=== PATIENT | male | born 1935 | race Caucasian/White ===

== ENCOUNTER 2020-04-05 08:25 | Inpatient (IN) | payer MEDICARE, BC ==
--- NOTE | 2020-04-05 09:33 | EDM.PDOC ---
ED HPI GENERAL MEDICAL PROBLEM - General Chief Complaint: General Stated Complaint: WEAKNESS Time Seen by Provider: 04/05/20 09:29 Source of Information: Reports: Patient History Limitations: Reports: No Limitations - History of Present Illness INITIAL COMMENTS - FREE TEXT/NARRATIVE: pt has marked weakness and was in the bathroom last nite and went to the floor not hurting himself. He had alot of difficulty geting up. 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 a Onset: Gradual Duration: Hour(s): Location: Reports: Generalized Associated Symptoms: Reports: No Other Symptoms, Weakness - Related Data Allergies Allergy/AdvReac Type Severity Reaction Status Date / Time No Known Allergies Allergy Verified 04/05/20 08:48 Home Meds: Home Meds Folic Acid 1 mg PO DAILY 04/05/20 [History] Insulin Glarg,Human.Rec.Analog [Lantus Solostar] 10 unit SQ BEDTIME 04/05/20 [History] Omeprazole Magnesium [Prilosec] 20 mg PO DAILY 04/05/20 [History] Pravastatin [Pravachol] 40 mg PO DAILY 04/05/20 [History] glipiZIDE [Glucotrol XL] 10 mg PO BID 04/05/20 [History] metFORMIN [Glucophage XR] 1,000 mg PO BIDMEALS 04/05/20 [History] Past Medical History HEENT History: Reports: Impaired Vision Cardiovascular History: Reports: High Cholesterol Gastrointestinal History: Reports: GERD Endocrine/Metabolic History: Reports: Diabetes, Type II Hematologic History: Reports: Anemia, B12 Deficiency Oncologic (Cancer) History: Reports: Leukemia Social & Family History - Tobacco Use Smoking Status *Q: Never Smoker - Caffeine Use Caffeine Use: Reports: Coffee - Recreational Drug Use Recreational Drug Use: No ED ROS GENERAL - Review of Systems Review Of Systems: See Below Constitutional: Reports: Weakness, Fatigue HEENT: Reports: No Symptoms Respiratory: Reports: No Symptoms Cardiovascular: Reports: No Symptoms Endocrine: Reports: No Symptoms GI/Abdominal: Reports: Decreased Appetite, Other (pt is not eating and drinking well) : Reports: No Symptoms Musculoskeletal: Reports: No Symptoms Skin: Reports: No Symptoms ED EXAM, GENERAL - Physical Exam Exam: See Below Free Text/Narrative:: pt is having alot weakness. He has a history of chronic lynphcytic leukemia. Exam Limited By: No Limitations General Appearance: Alert, Anxious Ears: Normal TMs Nose: Normal Inspection Throat/Mouth: Normal Inspection Head: Atraumatic Neck: Normal Inspection Respiratory/Chest: No Respiratory Distress Cardiovascular: Regular Rate, Rhythm GI/Abdominal: Soft, Non-Tender (Male) Exam: Deferred Rectal (Males) Exam: Deferred, Other ( stool has been normal colored. ) Back Exam: Normal Inspection Extremities: No Pedal Edema Neurological: Alert, Oriented, Normal Cognition Psychiatric: Anxious Skin Exam: Other (pt is very pale in appearance. ) Course - Vital Signs Last Recorded V/S: Last Vital Signs Temp 36.4 C 04/05/20 08:51 Pulse 92 04/05/20 08:51 Resp 14 04/05/20 08:51 BP 115/31 L 04/05/20 08:51 Pulse Ox 100 04/05/20 08:51 - Orders/Labs/Meds Orders: Active Orders 24 hr Category Date Time Status FOLIC ACID [CHEM] Routine Lab 04/05/20 10:07 Received RED BLOOD CELLS LP [BBK] Stat Lab 04/05/20 09:25 Received TYPE AND SCREEN [BBK] Stat Lab 04/05/20 09:25 Received UA W/MICROSCOPIC [URIN] Urgent Lab 04/05/20 09:06 Ordered VITAMIN B12 [CHEM] Stat Lab 04/05/20 09:58 Ordered Sodium Chloride 0.9% [Normal Saline] 1,000 ml Med 04/05/20 10:00 Active IV ASDIRECTED Medication Orders Sodium Chloride (Normal Saline) 1,000 mls @ 250 mls/hr IV ASDIRECTED ADRSHAN Labs: Laboratory Tests 04/05/20 04/05/20 Range/Units 09:22 09:22 WBC 17.1 H (4.5-11.0) K/uL RBC 1.71 L (4.30-5.90) M/uL Hgb 5.6 L* (12.0-15.0) g/dL Hct 18.6 L (40.0-54.0) % MCV 109 H (80-98) fL MCH 33 H (27-31) pg MCHC 30 L (32-36) % Plt Count 153 (150-400) K/uL Add Manual Diff Yes Neutrophils % (Manual) 5 L (36-66) % Lymphocytes % (Manual) 94 H (24-44) % Monocytes % (Manual) 1 L (2-6) % Sodium 135 L (140-148) mmol/L Potassium 4.3 (3.6-5.2) mmol/L Chloride 103 (100-108) mmol/L Carbon Dioxide 22 (21-32) mmol/L Anion Gap 14.3 H (5.0-14.0) mmol/L BUN 24 H (7-18) mg/dL Creatinine 1.4 H (0.8-1.3) mg/dL Est Cr Clr Drug Dosing 35.28 mL/min Estimated GFR (MDRD) 48 L (>60) Glucose 241 H (74-106) mg/dL Calcium 8.2 L (8.5-10.1) mg/dL Total Bilirubin 0.6 (0.2-1.0) mg/dL AST 13 L (15-37) U/L ALT 22 (12-78) U/L Alkaline Phosphatase 51 (46-116) U/L Total Protein 6.1 L (6.4-8.2) g/dL Albumin 3.4 (3.4-5.0) g/dL Globulin 2.7 (2.3-3.5) g/dL Albumin/Globulin Ratio 1.3 (1.2-2.2) Meds: Medications Generic Name Dose Route Start Last Admin Trade Name Freq PRN Reason Stop Dose Admin Sodium Chloride 1,000 mls @ 250 mls/hr 04/05/20 10:00 Normal Saline IV ASDIRECTED DARSHAN - Re-Assessments/Exams Free Text/Narrative Re-Assessment/Exam: 04/05/20 10:03 pt has a hg of 5.6. He has received blood once in the past and he did feel alot better after the transfusion/ Departure - Departure Time of Disposition: 10:14 Disposition: Admitted As Inpatient 66 Condition: Fair Clinical Impression: Anemia, Chronic lymphocytic leukemia - Discharge Information Referrals: PCP,None [Primary Care Provider] - Forms: ED Department Discharge Care Plan Goals: pt will be transfused. Sepsis Event Note (ED) - Evaluation Sepsis Screening Result: No Definite Risk - Focused Exam Vital Signs: Vital Signs Temp Pulse Resp BP Pulse Ox 04/05/20 08:51 36.4 C 92 14 115/31 L 100 04/05/20 08:45 36.4 C 92 14 115/31 L 100 - My Orders Last 24 Hours: My Active Orders 04/05/20 09:06 UA W/MICROSCOPIC [URIN] Urgent 04/05/20 09:25 RED BLOOD CELLS LP [BBK] Stat TYPE AND SCREEN [BBK] Stat 04/05/20 09:58 VITAMIN B12 [CHEM] Stat 04/05/20 10:00 Sodium Chloride 0.9% [Normal Saline] 1,000 ml IV ASDIRECTED 04/05/20 10:07 FOLIC ACID [CHEM] Routine - Assessment/Plan Last 24 Hours: My Active Orders 04/05/20 09:06 UA W/MICROSCOPIC [URIN] Urgent 04/05/20 09:25 RED BLOOD CELLS LP [BBK] Stat TYPE AND SCREEN [BBK] Stat 04/05/20 09:58 VITAMIN B12 [CHEM] Stat 04/05/20 10:00 Sodium Chloride 0.9% [Normal Saline] 1,000 ml IV ASDIRECTED 04/05/20 10:07 FOLIC ACID [CHEM] Routine
[2020-04-05] MEDS ORDERED: Sodium Chloride 0.9% 1,000 ML IV SCH (10:00)
--- NOTE | 2020-04-05 10:51 | PCM.HP.2 ---
H&P History of Present Illness - General Date of Service: 04/05/20 Admit Problem/Dx: Admission Diagnosis/Problem Admission Diagnosis/Problem Anemia Source of Information: Patient, Family, Old Records, Provider, RN Notes Reviewed History Limitations: Reports: No Limitations - History of Present Illness Initial Comments - Free Text/Narative: Mr. Morin is an 84-year-old gentleman who was admitted through the emergency department to observation status for management of severe anemia and weakness. He has a known diagnosis of chronic lymphocytic leukemia with chronic anemia. On recent clinic follow-up was found to have a hemoglobin of 6.5 but was also found to be B12 deficient. He has received a B12 injection but unfortunately has become progressively more weak and lightheaded. He fell last night and was unable to get up without significant assistance. On evaluation in the emergency department today his hemoglobin is noted to be 5.6 white blood cell count is 17,000 with a predominance of lymphocytes and his platelet count is within normal range. - Related Data Allergies/Adverse Reactions: Allergies Allergy/AdvReac Type Severity Reaction Status Date / Time No Known Allergies Allergy Verified 04/05/20 08:48 Home Medications: Home Meds Folic Acid 1 mg PO DAILY 04/05/20 [History] Insulin Glarg,Human.Rec.Analog [Lantus Solostar] 10 unit SQ BEDTIME 04/05/20 [History] Omeprazole Magnesium [Prilosec] 20 mg PO DAILY 04/05/20 [History] Pravastatin [Pravachol] 40 mg PO DAILY 04/05/20 [History] glipiZIDE [Glucotrol XL] 10 mg PO BID 04/05/20 [History] metFORMIN [Glucophage XR] 1,000 mg PO BIDMEALS 04/05/20 [History] Past Medical History HEENT History: Reports: Impaired Vision Cardiovascular History: Reports: High Cholesterol Gastrointestinal History: Reports: GERD Endocrine/Metabolic History: Reports: Diabetes, Type II Hematologic History: Reports: Anemia, B12 Deficiency Oncologic (Cancer) History: Reports: Leukemia Social & Family History - Tobacco Use Smoking Status *Q: Never Smoker - Caffeine Use Caffeine Use: Reports: Coffee - Recreational Drug Use Recreational Drug Use: No H&P Review of Systems - Review of Systems: Review Of Systems: See Below General: Reports: Weakness, Fatigue. Denies: Fever, Chills HEENT: Reports: No Symptoms Pulmonary: Reports: Shortness of Breath. Denies: Wheezing, Pleuritic Chest Pain, Cough, Sputum, Hemoptysis Cardiovascular: Reports: Dyspnea on Exertion, Lightheadedness. Denies: Chest Pain, Palpitations, Orthopnea, PND, Edema, Syncope Gastrointestinal: Reports: No Symptoms Genitourinary: Reports: No Symptoms Musculoskeletal: Reports: No Symptoms Skin: Reports: No Symptoms Psychiatric: Reports: No Symptoms Neurological: Reports: No Symptoms Hematologic/Lymphatic: Reports: No Symptoms Immunologic: Reports: No Symptoms Exam - Exam Exam: See Below - Vital Signs Vital Signs: Last Vital Signs Temp 97.6 F 04/05/20 08:51 Pulse 92 04/05/20 08:51 Resp 14 04/05/20 08:51 BP 115/31 L 04/05/20 08:51 Pulse Ox 100 04/05/20 08:51 Weight: 140 lb - Exam Quality Assessment: DVT Prophylaxis General: Alert, Oriented, Cooperative, Moderate Distress HEENT: Conjunctiva Clear, Hearing Intact, Mucosa Moist & [place], Normal Nasal Septum, Posterior Pharynx Clear, Pupils Equal Neck: Supple, Trachea Midline, +2 Carotid Pulse wo Bruit Lungs: Clear to Auscultation, Normal Respiratory Effort Cardiovascular: Regular Rate, Regular Rhythm, Normal S1, Normal S2. No: Systolic Murmur, Diastolic Murmur GI/Abdominal Exam: Soft, Non-Tender, No Organomegaly, No Distention Back Exam: Normal Inspection, Full Range of Motion Extremities: Non-Tender, No Pedal Edema Skin: Warm, Dry, Intact Neurological: Cranial Nerves Intact, Strength Equal Bilateral, Normal Speech, Normal Tone, Sensation Intact. No: Focal Deficit Neuro Extensive - Mental Status: Alert, Oriented x3, Normal Mood/Affect, Normal Cognition, Memory Intact - Patient Data Lab Results Last 24 hrs: Laboratory Results - last 24 hr 04/05/20 04/05/20 04/05/20 Range/Units 09:22 09:22 09:25 WBC 17.1 H (4.5-11.0) K/uL RBC 1.71 L (4.30-5.90) M/uL Hgb 5.6 L* (12.0-15.0) g/dL Hct 18.6 L (40.0-54.0) % MCV 109 H (80-98) fL MCH 33 H (27-31) pg MCHC 30 L (32-36) % Plt Count 153 (150-400) K/uL Add Manual Diff Yes Neutrophils % (Manual) 5 L (36-66) % Lymphocytes % (Manual) 94 H (24-44) % Monocytes % (Manual) 1 L (2-6) % Sodium 135 L (140-148) mmol/L Potassium 4.3 (3.6-5.2) mmol/L Chloride 103 (100-108) mmol/L Carbon Dioxide 22 (21-32) mmol/L Anion Gap 14.3 H (5.0-14.0) mmol/L BUN 24 H (7-18) mg/dL Creatinine 1.4 H (0.8-1.3) mg/dL Est Cr Clr Drug Dosing 35.28 mL/min Estimated GFR (MDRD) 48 L (>60) Glucose 241 H (74-106) mg/dL Calcium 8.2 L (8.5-10.1) mg/dL Total Bilirubin 0.6 (0.2-1.0) mg/dL AST 13 L (15-37) U/L ALT 22 (12-78) U/L Alkaline Phosphatase 51 (46-116) U/L Total Protein 6.1 L (6.4-8.2) g/dL Albumin 3.4 (3.4-5.0) g/dL Globulin 2.7 (2.3-3.5) g/dL Albumin/Globulin Ratio 1.3 (1.2-2.2) Blood Type A POSITIVE Gel Antibody Screen Negative Crossmatch See Detail Result Diagrams: 04/05/20 09:22 04/05/20 09:22 Sepsis Event Note - Evaluation Sepsis Screening Result: No Definite Risk - Focused Exam Vital Signs: Vital Signs Temp Pulse Resp BP Pulse Ox 04/05/20 08:51 97.6 F 92 14 115/31 L 100 04/05/20 08:45 97.6 F 92 14 115/31 L 100 Date Exam was Performed: 04/05/20 Time Exam was Performed: 10:44 *Q Meaningful Use (ADM) - VTE *Q VTE Pharmacological Contraindications *Q: Patient has Severe Anemia - VTE Risk Assess *Q Each Risk Factor Represents 1 Point: None Total Score 1 Point Risk Factors: 0 Each Risk Factor Represents 2 Points: Malignancy (present or previous) Total Score 2 Point Risk Factors: 2 Each Risk Factor Represents 3 Points: Age 75 Years or Greater Total Score 3 Point Risk Factors: 3 Each Risk Factor Represents 5 Points: None Total Score 5 Point Risk Factors: 0 Venous Thromboembolism Risk Factor Score *Q: 5 Problem List Initiated/Reviewed/Updated: Yes Orders Last 24hrs: Active Orders 24 hr Category Date Time Status Patient Status Manage Transfer [TRANSFER] Routine ADT 04/05/20 10:38 Active FOLIC ACID [CHEM] Routine Lab 04/05/20 10:07 Received PATIENT RETYPE [BBK] Stat Lab 04/05/20 09:25 Results RED BLOOD CELLS LP [BBK] Stat Lab 04/05/20 09:25 Results TYPE AND SCREEN [BBK] Stat Lab 04/05/20 09:25 Results UA W/MICROSCOPIC [URIN] Urgent Lab 04/05/20 09:06 Ordered VITAMIN B12 [CHEM] Stat Lab 04/05/20 09:58 Ordered Sodium Chloride 0.9% [Normal Saline] 1,000 ml Med 04/05/20 10:00 Active IV ASDIRECTED Resuscitation Status Routine Resus Stat 04/05/20 10:39 Ordered Medication Orders Sodium Chloride (Normal Saline) 1,000 mls @ 250 mls/hr IV ASDIRECTED DARSHAN Last Admin: 04/05/20 10:38 Dose: 250 mls/hr Documented by: SABINO Assessment/Plan Comment:: ASSESSMENT AND PLAN SEVERE ANEMIA-secondary to underlying chronic lymphocytic leukemia as well as B12 deficiency. He has started B12 injections but hemoglobin is dropped since his last outpatient visit, now at 5.6. -Transfused 2 units of red blood cells -Follow-up hemoglobin in a.m. 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 TYPE 2 DIABETES MELLITUS -Continue outpatient long-acting insulin and glipizide -4 times daily glucometers -Low-dose sliding scale Humalog MAINTENANCE ISSUES -DVT prophylaxis; not a candidate for anticoagulation because of severe anemia, SCUDs -GI prophylaxis; continue outpatient PPI therapy -Small catheter; not indicated -Nutrition; consistent carbohydrate diet -Nicotine dependence; not required CODE STATUS-FULL CODE ADMISSION STATUS-this patient will be admitted to observation status, expect no more than a one night hospital stay for evaluation and management of problems as outlined above. DISPOSITION-anticipate discharge to home after the hospital stay. PRIMARY CARE PROVIDER-current primary care provider is at the [facility] in [place]. - Mortality Measure Prognosis:: Good
[2020-04-05] MEDS ORDERED: Ondansetron 4 MG/2 ML SDV IV PRN (12:29)
[2020-04-05] MEDS ORDERED: Polyethylene Glycol 3350 Powder 17 GM Packet PO PRN (12:29)
[2020-04-05] MEDS ORDERED: Glucose Gel 15 GM in 37.5 GM Tube PO PRN (12:29)
[2020-04-05] MEDS ORDERED: 50% Dextrose in Water 50 ML Syringe IV PRN (12:29)
[2020-04-05] MEDS ORDERED: Sodium Chloride 0.9% 10 ML Syringe FLUSH PRN (12:29)
[2020-04-05] MEDS: Insulin Lispro 100 Unit/ML 3 ML KwikPen SUBCUT SCH ×3 (13:39→21:31)
[2020-04-05] MEDS: glipiZIDE 5 MG Tab.ER PO SCH (16:05)
[2020-04-05] MEDS: metFORMIN 500 MG Tab PO SCH (16:05)
[2020-04-05] MEDS: Insulin Glargine,Human Rec. Analog 100 Units/ML 3 ML Pen SUBCUT SCH (21:32)
[2020-04-06] MEDS: Insulin Lispro 100 Unit/ML 3 ML KwikPen SUBCUT SCH ×4 (08:07→21:27)
[2020-04-06] MEDS: FOLIC ACID 1 MG PO SCH (08:08)
[2020-04-06] MEDS: Pantoprazole 40 MG Tab.CR PO SCH (08:08)
[2020-04-06] MEDS: metFORMIN 500 MG Tab PO SCH (08:08)
[2020-04-06] MEDS: glipiZIDE 5 MG Tab.ER PO SCH (08:08)
[2020-04-06] MEDS ORDERED: Pravastatin 20 MG Tab PO SCH (09:00)
--- NOTE | 2020-04-06 12:17 | PCM.DCSUM1 ---
Discharge Summary - Hospital Course Brief History: Mr. Morin is an 84-year-old gentleman who was admitted through the emergency department with severe weakness and recent falls secondary to severe anemia and underlying chronic lymphocytic leukemia. - Discharge Data Discharge Date: 04/06/20 Discharge Disposition: Home, W Home Health Agency 06 Condition: Fair - Referral to Home Health Date of Face to Face Encounter: 04/06/20 Reason for Homebound Status: Weakness, chronic lymphocytic leukemia, anemia Primary Care Physician: PCP None Skilled Need: Severe generalized weakness, restorative physical therapy and Occupational Therapy - Patient Summary/Data Consults: Consultations 04/06/20 07:49 Consult to Physical Therapy [PT Evaluation and Treatment] [CONS] Routine Please Evaluate and Treat. PT Reason for Consult: weakness, falls This query below is only for informational purposes and is not editable. Admission Diagnosis/Problem: Anemia Hospital Course: Mr. Morin is an 84-year-old gentleman who was admitted through the emergency department to observation status for management of severe anemia and weakness. He has a known diagnosis of chronic lymphocytic leukemia with chronic anemia. On recent clinic follow-up was found to have a hemoglobin of 6.5 but was also found to be B12 deficient. He has received a B12 injection but unfortunately has become progressively more weak and lightheaded. He fell last night and was unable to get up without significant assistance. On evaluation in the emergency department today his hemoglobin is noted to be 5.6 white blood cell count is 17,000 with a predominance of lymphocytes and his platelet count is within normal range. He was admitted to observation status and transfused 2 units of red blood cells. By the following morning hemoglobin was 8.9. Despite transfusion he remained very weak. Family did not feel that they would be able to afford fdc placement so he will be discharged home with home physical therapy and Occupational Therapy. Blood glucose levels were monitored throughout hospital stay and remained within desired range for the most part. Follow-up appointment will be scheduled with a primary care provider as well as oncology for ongoing management of his chronic lymphocytic leukemia. Activity will be as tolerated and he will remain on a consistent carb diet. - Patient Instructions Diet: Usual Diet as Tolerated Activity: As Tolerated Other/Special Instructions: Please schedule follow-up appointment with primary care provider within 1 week. CBC should be obtained at the time of follow-up appointment. Please arrange for home care with home physical therapy and Occupational Therapy. - Discharge Plan *PRESCRIPTION DRUG MONITORING PROGRAM REVIEWED*: Not Applicable *COPY OF PRESCRIPTION DRUG MONITORING REPORT IN PATIENT YOLANDA: Not Applicable Home Medications: Home Meds Folic Acid 1 mg PO DAILY 04/05/20 [History] Insulin Glarg,Human.Rec.Analog [Lantus Solostar] 10 unit SQ BEDTIME 04/05/20 [History] Omeprazole Magnesium [Prilosec] 20 mg PO DAILY 04/05/20 [History] Pravastatin [Pravachol] 40 mg PO DAILY 04/05/20 [History] glipiZIDE [Glucotrol XL] 10 mg PO BID 04/05/20 [History] metFORMIN [Glucophage XR] 1,000 mg PO BIDMEALS 04/05/20 [History] - Discharge Summary/Plan Comment DC Time >30 min.: No - Patient Data Vitals - Most Recent: Last Vital Signs Temp 95.7 F L 04/06/20 11:25 Pulse 94 04/06/20 11:25 Resp 16 04/06/20 11:25 BP 130/51 L 04/06/20 11:25 Pulse Ox 98 04/06/20 11:25 Weight - Most Recent: 131 lb I&O - Last 24 hours: Intake & Output 04/05/20 04/06/20 04/06/20 22:59 06:59 14:59 Intake Total 1070 300 500 Balance 1070 300 500 Lab Results - Last 24 hrs: Laboratory Results - last 24 hr 04/05/20 04/05/20 04/05/20 Range/Units 09:25 12:15 16:30 Hgb (12.0-15.0) g/dL POC Glucose 197 H (74-106) MG/DL Urine Color Yellow (YELLOW) Urine Appearance Clear (CLEAR) Urine pH 6.0 (5.0-8.0) Ur Specific [place] 1.025 (1.008-1.030) Urine Protein Negative (NEGATIVE) mg/dL Urine Glucose (UA) 250 H (NEGATIVE) mg/dL Urine Ketones Negative (NEGATIVE) mg/dL Urine Occult Blood Negative (NEGATIVE) Urine Nitrite Negative (NEGATIVE) Urine Bilirubin Negative (NEGATIVE) Urine Urobilinogen 0.2 (0.2-1.0) EU/dL Ur Leukocyte Esterase Negative (NEGATIVE) Urine RBC Not seen (0-5) Urine WBC 0-5 (0-5) Ur Epithelial Cells Not seen Amorphous Sediment Rare Urine Bacteria Not seen Urine Mucus Rare Blood Type A POSITIVE Gel Antibody Screen Negative Crossmatch See Detail 04/05/20 04/06/20 04/06/20 Range/Units 21:00 05:00 05:00 Hgb 8.9 L D (12.0-15.0) g/dL POC Glucose 99 86 (74-106) MG/DL Urine Color (YELLOW) Urine Appearance (CLEAR) Urine pH (5.0-8.0) Ur Specific [place] (1.008-1.030) Urine Protein (NEGATIVE) mg/dL Urine Glucose (UA) (NEGATIVE) mg/dL Urine Ketones (NEGATIVE) mg/dL Urine Occult Blood (NEGATIVE) Urine Nitrite (NEGATIVE) Urine Bilirubin (NEGATIVE) Urine Urobilinogen (0.2-1.0) EU/dL Ur Leukocyte Esterase (NEGATIVE) Urine RBC (0-5) Urine WBC (0-5) Ur Epithelial Cells Amorphous Sediment Urine Bacteria Urine Mucus Blood Type Gel Antibody Screen Crossmatch 04/06/20 04/06/20 Range/Units 07:30 11:30 Hgb (12.0-15.0) g/dL POC Glucose 82 105 (74-106) MG/DL Urine Color (YELLOW) Urine Appearance (CLEAR) Urine pH (5.0-8.0) Ur Specific [place] (1.008-1.030) Urine Protein (NEGATIVE) mg/dL Urine Glucose (UA) (NEGATIVE) mg/dL Urine Ketones (NEGATIVE) mg/dL Urine Occult Blood (NEGATIVE) Urine Nitrite (NEGATIVE) Urine Bilirubin (NEGATIVE) Urine Urobilinogen (0.2-1.0) EU/dL Ur Leukocyte Esterase (NEGATIVE) Urine RBC (0-5) Urine WBC (0-5) Ur Epithelial Cells Amorphous Sediment Urine Bacteria Urine Mucus Blood Type Gel Antibody Screen Crossmatch Med Orders - Current: Current Medications Acetaminophen (Tylenol) 650 mg PO Q4H PRN PRN Reason: Pain (Mild 1-3)/fever Dextrose (Glutose 15) 15 gm PO ONETIME PRN PRN Reason: Hypoglycemia Dextrose/Water (Dextrose 50% In Water) 50 ml IV ONETIME PRN PRN Reason: Hypoglycemia Folic Acid (Folic Acid) 1 mg PO DAILY DARSHAN Last Admin: 04/06/20 08:08 Dose: 1 mg Documented by: Glipizide (Glucotrol Xl) 10 mg PO BIDMEALS [facility] Last Admin: 04/06/20 08:08 Dose: 10 mg Documented by: Insulin Glargine (Lantus Solostar) 10 units SUBCUT BEDTIME [facility] Last Admin: 04/05/20 21:32 Dose: 10 units Documented by: Insulin Human Lispro (Humalog) 0 unit SUBCUT QIDACANDBED [facility]; Protocol Last Admin: 04/06/20 08:07 Dose: Not Given Documented by: Metformin HCl (Glucophage) 1,000 mg PO BIDMEALS [facility] Last Admin: 04/06/20 08:08 Dose: 1,000 mg Documented by: Ondansetron HCl (Zofran) 4 mg IV Q4H PRN PRN Reason: Nausea/Vomiting Pantoprazole Sodium (Protonix) 40 mg PO ACBREAKFAST [facility] Last Admin: 04/06/20 08:08 Dose: 40 mg Documented by: Polyethylene Glycol (Miralax) 17 gm PO DAILY PRN PRN Reason: Constipation Pravastatin Sodium (Pravachol) 40 mg PO DAILY [facility] Last Admin: 04/06/20 08:08 Dose: 40 mg Documented by: Sodium Chloride (Saline Flush) 10 ml FLUSH ASDIRECTED PRN PRN Reason: Keep Vein Open Discontinued Medications Sodium Chloride (Normal Saline) 1,000 mls @ 250 mls/hr IV ASDIRECTED [facility] Last Admin: 04/05/20 10:38 Dose: 250 mls/hr Documented by: - Exam General: Reports: Alert, Oriented, Cooperative, No Acute Distress Lungs: Reports: Clear to Auscultation, Normal Respiratory Effort Cardiovascular: Reports: Regular Rate, Regular Rhythm, No Murmurs GI/Abdominal Exam: Soft, Non-Tender, No Organomegaly, No Distention Extremities: Non-Tender, No Pedal Edema *Q Meaningful Use (DIS) - VTE *Q VTE Pharmacological Contraindications *Q: Patient has Severe Anemia
[2020-04-06] MEDS: GLIPIZIDE 10 MG PO SCH (17:42)
[2020-04-06] MEDS: METFORMIN 1000 MG PO SCH (17:43)
[2020-04-06] MEDS: Insulin Glargine,Human Rec. Analog 100 Units/ML 3 ML Pen SUBCUT SCH (21:28)
[2020-04-07] MEDS: Pantoprazole 40 MG Tab.CR PO SCH (07:31)
[2020-04-07] MEDS: Insulin Lispro 100 Unit/ML 3 ML KwikPen SUBCUT SCH ×4 (07:34→21:07)
[2020-04-07] MEDS: METFORMIN 1000 MG PO SCH ×2 (08:24→17:00)
[2020-04-07] MEDS: GLIPIZIDE 10 MG PO SCH ×2 (08:24→16:59)
[2020-04-07] MEDS: FOLIC ACID 1 MG PO SCH (08:24)
[2020-04-07] MEDS: PRAVASTATIN 40 MG PO SCH (08:24)
--- NOTE | 2020-04-07 10:21 | CT ---
Head wo Cont CLINICAL HISTORY: Fall COMPARISON: None TECHNIQUE: Transverse scans were obtained from the base of the skull through the vertex without IV contrast on a multislice, multidetector CT scanner. Auto dosage reduction and iterative reconstruction techniques employed. FINDINGS: There is a small low-attenuation focus in the posterior basal ganglia on the right. This may represent a small lacunar-type infarct of remote chronology.. There is no mass effect, hemorrhage, or extraaxial collection. The basal cisterns and sulci over the convexities are prominent. The ventricles are prominent. 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
[2020-04-07] MEDS ORDERED: Sodium Chloride 0.9% 1,000 ML IV SCH (15:00)
--- NOTE | 2020-04-07 15:21 | PCM.SN.2 ---
- Free Text/Narrative Note: 04/06/20; Mr. Morin had been scheduled for discharge to home on the , after discharge orders were completed and discharge summary completed he developed symptoms of nausea and vomiting. He was monitored into the afternoon and continued to experience symptoms so his discharge was canceled.
--- NOTE | 2020-04-07 15:27 | PCM.PN ---
- General Info Date of Service: 04/07/20 Subjective Update: Mr. Morin was to have been discharged yesterday, discharge summary and discharge orders were completed. Shortly after this and prior to discharge he developed nausea with vomiting. Unfortunately those symptoms have persisted over the last 24 hours. Now this morning he has also developed diplopia associated with his nausea. He did experience a fall early in the morning of April 06, denies hitting his head. He is weaker today and requires assistance of 2 for transfers and ambulation. Laboratory studies were repeated, chemistry profile was unremarkable and CBC shows persistent elevation of white count consistent with CLL, hemoglobin stable from yesterday at 8.9. CT scan of the head without contrast was obtained and shows no acute abnormalities. Functional Status: Reports: Urinating. Denies: Tolerating Diet, Ambulating - Review of Systems General: Reports: Weakness, Malaise. Denies: Fever, Chills HEENT: Reports: Other (Diplopia) Pulmonary: Reports: No Symptoms Cardiovascular: Reports: No Symptoms Gastrointestinal: Reports: No Symptoms - Patient Data Vitals - Most Recent: Last Vital Signs Temp 97.0 F 04/07/20 11:06 Pulse 86 04/07/20 11:06 Resp 18 04/07/20 11:06 BP 123/44 L 04/07/20 11:06 Pulse Ox 95 04/07/20 11:06 Weight - Most Recent: 129 lb 9.6 oz I&O - Last 24 Hours: Intake & Output 04/07/20 04/07/20 04/07/20 06:59 14:59 22:59 Intake Total 700 Output Total 20 Balance 700 -20 Lab Results Last 24 Hours: Laboratory Results - last 24 hr 04/06/20 04/06/20 04/07/20 Range/Units 16:39 21:00 07:30 WBC (4.5-11.0) K/uL RBC (4.30-5.90) M/uL Hgb (12.0-15.0) g/dL Hct (40.0-54.0) % MCV (80-98) fL MCH (27-31) pg MCHC (32-36) % Plt Count (150-400) K/uL Neut % (Auto) (36-66) % Lymph % (Auto) (24-44) % [place] % (Auto) (2-6) % Eos % (Auto) (2-4) % Baso % (Auto) (0-1) % Sodium (140-148) mmol/L Potassium (3.6-5.2) mmol/L Chloride (100-108) mmol/L Carbon Dioxide (21-32) mmol/L Anion Gap (5.0-14.0) mmol/L BUN (7-18) mg/dL Creatinine (0.8-1.3) mg/dL Est Cr Clr Drug Dosing mL/min Estimated GFR (MDRD) (>60) BUN/Creatinine Ratio Glucose (74-106) mg/dL POC Glucose 126 H 104 94 (74-106) MG/DL Calcium (8.5-10.1) mg/dL Magnesium (1.8-2.4) mg/dL Total Bilirubin (0.2-1.0) mg/dL AST (15-37) U/L ALT (12-78) U/L Alkaline Phosphatase (46-116) U/L Total Protein (6.4-8.2) g/dL Albumin (3.4-5.0) g/dL Globulin (2.3-3.5) g/dL Albumin/Globulin Ratio (1.2-2.2) 04/07/20 04/07/20 04/07/20 Range/Units 09:26 09:26 11:30 WBC 25.1 H (4.5-11.0) K/uL RBC 2.75 L (4.30-5.90) M/uL Hgb 8.9 L (12.0-15.0) g/dL Hct 26.7 L (40.0-54.0) % MCV 97 (80-98) fL MCH 32 H (27-31) pg MCHC 33 (32-36) % Plt Count 122 L (150-400) K/uL Neut % (Auto) 6 L (36-66) % Lymph % (Auto) 94 H (24-44) % [place] % (Auto) 1 L (2-6) % Eos % (Auto) 0 L (2-4) % Baso % (Auto) 0 (0-1) % Sodium (140-148) mmol/L Potassium (3.6-5.2) mmol/L Chloride (100-108) mmol/L Carbon Dioxide (21-32) mmol/L Anion Gap (5.0-14.0) mmol/L BUN (7-18) mg/dL Creatinine (0.8-1.3) mg/dL Est Cr Clr Drug Dosing mL/min Estimated GFR (MDRD) (>60) BUN/Creatinine Ratio Glucose (74-106) mg/dL POC Glucose 166 H (74-106) MG/DL Calcium (8.5-10.1) mg/dL Magnesium (1.8-2.4) mg/dL Total Bilirubin (0.2-1.0) mg/dL AST (15-37) U/L ALT (12-78) U/L Alkaline Phosphatase (46-116) U/L Total Protein (6.4-8.2) g/dL Albumin (3.4-5.0) g/dL Globulin (2.3-3.5) g/dL Albumin/Globulin Ratio (1.2-2.2) Med Orders - Current: Current Medications Acetaminophen (Tylenol) 650 mg PO Q4H PRN PRN Reason: Pain (Mild 1-3)/fever Dextrose (Glutose 15) 15 gm PO ONETIME PRN PRN Reason: Hypoglycemia Dextrose/Water (Dextrose 50% In Water) 50 ml IV ONETIME PRN PRN Reason: Hypoglycemia Folic Acid (Folic Acid) 1 mg PO DAILY [facility] Last Admin: 04/07/20 08:24 Dose: 1 mg Documented by: Sodium Chloride (Normal Saline) 1,000 mls @ 100 mls/hr IV ASDIRECTED [facility] Insulin Glargine (Lantus Solostar) 10 units SUBCUT BEDTIME [facility] Last Admin: 04/06/20 21:28 Dose: 10 units Documented by: Insulin Human Lispro (Humalog) 0 unit SUBCUT QIDACANDBED [facility]; Protocol Last Admin: 04/07/20 13:23 Dose: Not Given Documented by: Ondansetron HCl (Zofran) 4 mg IV Q4H PRN PRN Reason: Nausea/Vomiting Last Admin: 04/06/20 12:42 Dose: 4 mg Documented by: Pantoprazole Sodium (Protonix) 40 mg PO ACBREAKFAST [facility] Last Admin: 04/07/20 07:31 Dose: 40 mg Documented by: Pravastatin 40 Mg (TabPom) 0 each PO DAILY [facility] Last Admin: 04/07/20 08:24 Dose: 1 each Documented by: Metformin 1000 Mg (TabPom) 0 each PO BIDMEALS [facility] Last Admin: 04/07/20 08:24 Dose: 1 each Documented by: Glipizide 10 Mg Tab* (*Pom) 0 each PO BIDMEALS [facility] Last Admin: 04/07/20 08:24 Dose: 1 each Documented by: Polyethylene Glycol (Miralax) 17 gm PO DAILY PRN PRN Reason: Constipation Sodium Chloride (Saline Flush) 10 ml FLUSH ASDIRECTED PRN PRN Reason: Keep Vein Open Discontinued Medications Glipizide (Glucotrol Xl) 10 mg PO BIDMEALS [facility] Last Admin: 04/06/20 08:08 Dose: 10 mg Documented by: Sodium Chloride (Normal Saline) 1,000 mls @ 250 mls/hr IV ASDIRECTED [facility] Last Admin: 04/05/20 10:38 Dose: 250 mls/hr Documented by: Metformin HCl (Glucophage) 1,000 mg PO BIDMEALS [facility] Last Admin: 04/06/20 08:08 Dose: 1,000 mg Documented by: Pravastatin Sodium (Pravachol) 40 mg PO DAILY [facility] Last Admin: 04/06/20 08:08 Dose: 40 mg Documented by: - Exam Quality Assessment: DVT Prophylaxis General: Alert, Oriented, Cooperative, Moderate Distress Lungs: Clear to Auscultation, Normal Respiratory Effort Cardiovascular: Regular Rate, Regular Rhythm, No Murmurs GI/Abdominal Exam: Soft, Non-Tender, No Organomegaly, No Distention Extremities: Non-Tender, No Pedal Edema Sepsis Event Note - Evaluation Sepsis Screening Result: No Definite Risk - Focused Exam Vital Signs: Vital Signs Temp Pulse Resp BP Pulse Ox 04/07/20 11:06 97.0 F 86 18 123/44 L 95 04/07/20 07:28 95.7 F L 82 18 134/46 L 96 Date Exam was Performed: 04/07/20 Time Exam was Performed: 15:21 - Problem List Review Problem List Initiated/Reviewed/Updated: Yes - My Orders Last 24 Hours: My Active Orders 04/06/20 17:00 Patient's Own Medication [Ptom] 0 each PO BIDMEALS Patient's Own Medication [Ptom] 0 each PO BIDMEALS 04/07/20 09:00 Patient's Own Medication [Ptom] 0 each PO DAILY 04/07/20 15:00 Sodium Chloride 0.9% [Normal Saline] 1,000 ml IV ASDIRECTED 04/07/20 16:30 GLUCOSE POC LAB TO COLLECT JPM [POC] QIDACANDBED 04/07/20 21:00 GLUCOSE POC LAB TO COLLECT JPM [POC] QIDACANDBED 04/08/20 05:00 BASIC METABOLIC PANEL,BMP [CHEM] Timed CBC WITH AUTO DIFF [HEME] Timed 04/08/20 07:30 GLUCOSE POC LAB TO COLLECT JPM [POC] QIDACANDBED 04/08/20 08:00 Brain w wo Cont [MR] Urgent 04/08/20 11:30 GLUCOSE POC LAB TO COLLECT JPM [POC] QIDACANDBED - Plan Plan:: ASSESSMENT AND PLAN SEVERE ANEMIA-secondary to underlying chronic lymphocytic leukemia as well as B12 deficiency. Hemoglobin now stable at 8.9 following transfusion of 2 units of red blood cells -Follow-up hemoglobin in a.m. 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 TYPE 2 DIABETES MELLITUS -Continue outpatient long-acting insulin and glipizide -4 times daily glucometers -Low-dose sliding scale Humalog NAUSEA VOMITING AND DIPLOPIA-specific etiology not apparent, labs are unremarkable, no evidence of significant metabolic abnormality or infection. He did fall early on the morning of the but denies hitting his head. Potentially secondary to a concussion. CT scan of the head shows no acute abnormalities. -MRI of the brain with and without contrast MAINTENANCE ISSUES -DVT prophylaxis; not a candidate for anticoagulation because of severe anemia, SCUDs -GI prophylaxis; continue outpatient PPI therapy -Small catheter; not indicated -Nutrition; consistent carbohydrate diet -Nicotine dependence; not required CODE STATUS-FULL CODE ADMISSION STATUS-this patient will be admitted to observation status, expect no more than a one night hospital stay for evaluation and management of problems as outlined above. DISPOSITION-anticipate discharge to home after the hospital stay. PRIMARY CARE PROVIDER-current primary care provider is at the [facility] in [place].
[2020-04-07] MEDS: Dextrose 5%-0.9% NaCl 1,000 ML IV SCH (21:52)
[2020-04-08] MEDS: Acetaminophen 325 MG Tab PO PRN ×3 (05:53→13:57)
[2020-04-08] MEDS ORDERED: Vancomycin 1 GM SDV IV SCH (06:00)
[2020-04-08] MEDS ORDERED: Piperacillin/Tazobactam 2.25 GM in Sodium Chloride 0.9% 50 ML IV SCH (06:30)
[2020-04-08] MEDS: METFORMIN 1000 MG PO SCH ×2 (08:20→16:54)
[2020-04-08] MEDS: FOLIC ACID 1 MG PO SCH (08:20)
[2020-04-08] MEDS: Pantoprazole 40 MG Tab.CR PO SCH (08:20)
[2020-04-08] MEDS: GLIPIZIDE 10 MG PO SCH (08:20)
[2020-04-08] MEDS: PRAVASTATIN 40 MG PO SCH (08:21)
[2020-04-08] MEDS: Insulin Lispro 100 Unit/ML 3 ML KwikPen SUBCUT SCH ×4 (08:24→22:30)
--- NOTE | 2020-04-08 09:35 | CR ---
CHEST: Portable 04/08/2020 at 6:12 AM CLINICAL HISTORY:Fever COMPARISON:None FINDINGS: The heart size, pulmonary vascularity and hilar structures are normal. No infiltrate effusion or pneumothorax is seen. There are atherosclerotic changes in the aorta. IMPRESSION: No acute cardiopulmonary process.
[2020-04-08] MEDS ORDERED: Lidocaine 2% Jelly 10 ML Urojet MUCMEM ONE (10:24)
--- NOTE | 2020-04-08 10:55 | PCM.PN ---
- General Info Date of Service: 04/08/20 Subjective Update: Overnight the patient did spike a fever. He has been doing a fair amount of coughing. He was started on broad-spectrum antibiotics. Since yesterday he has had an increase in his difficulty with speech and requires a great deal of effort for him to try to speak. He may have a slight left facial droop. He continues to endorse double vision. He does not report any focal weakness. Nursing has noted him to cough whenever he tries to drink thin liquids. Functional Status: Reports: Pain Controlled - Review of Systems General: Reports: Fever Neurological: Reports: Trouble Speaking, Change in Speech, Other (double vision) - Patient Data Vitals - Most Recent: Last Vital Signs Temp 38.2 C H 04/08/20 09:17 Pulse 71 04/08/20 08:27 Resp 16 04/08/20 08:27 BP 118/41 L 04/08/20 08:27 Pulse Ox 96 04/08/20 08:27 Weight - Most Recent: 60.781 kg I&O - Last 24 Hours: Intake & Output 04/07/20 04/08/20 04/08/20 22:59 06:59 14:59 Intake Total 100 1385 Balance 100 1385 Lab Results Last 24 Hours: Laboratory Results - last 24 hr 04/07/20 04/07/20 04/07/20 Range/Units 09:26 11:30 16:27 WBC (4.5-11.0) K/uL RBC (4.30-5.90) M/uL Hgb (12.0-15.0) g/dL Hct (40.0-54.0) % MCV (80-98) fL MCH (27-31) pg MCHC (32-36) % Plt Count (150-400) K/uL Neut % (Auto) (36-66) % Lymph % (Auto) (24-44) % [place] % (Auto) (2-6) % Eos % (Auto) (2-4) % Baso % (Auto) (0-1) % Sodium (140-148) mmol/L Potassium (3.6-5.2) mmol/L Chloride (100-108) mmol/L Carbon Dioxide (21-32) mmol/L Anion Gap (5.0-14.0) mmol/L BUN (7-18) mg/dL Creatinine (0.8-1.3) mg/dL Est Cr Clr Drug Dosing mL/min Estimated GFR (MDRD) (>60) BUN/Creatinine Ratio Glucose (74-106) mg/dL POC Glucose 166 H 124 H (74-106) MG/DL Calcium (8.5-10.1) mg/dL Magnesium (1.8-2.4) mg/dL Total Bilirubin (0.2-1.0) mg/dL AST (15-37) U/L ALT (12-78) U/L Alkaline Phosphatase (46-116) U/L Total Protein (6.4-8.2) g/dL Albumin (3.4-5.0) g/dL Globulin (2.3-3.5) g/dL Albumin/Globulin Ratio (1.2-2.2) SARS Virus RNA (PCR) (NEGATIVE) 04/07/20 04/07/20 04/07/20 Range/Units 19:07 20:53 21:29 WBC (4.5-11.0) K/uL RBC (4.30-5.90) M/uL Hgb (12.0-15.0) g/dL Hct (40.0-54.0) % MCV (80-98) fL MCH (27-31) pg MCHC (32-36) % Plt Count (150-400) K/uL Neut % (Auto) (36-66) % Lymph % (Auto) (24-44) % [place] % (Auto) (2-6) % Eos % (Auto) (2-4) % Baso % (Auto) (0-1) % Sodium (140-148) mmol/L Potassium (3.6-5.2) mmol/L Chloride (100-108) mmol/L Carbon Dioxide (21-32) mmol/L Anion Gap (5.0-14.0) mmol/L BUN (7-18) mg/dL Creatinine (0.8-1.3) mg/dL Est Cr Clr Drug Dosing mL/min Estimated GFR (MDRD) (>60) BUN/Creatinine Ratio Glucose (74-106) mg/dL POC Glucose 45 L* 48 L* (74-106) MG/DL Calcium (8.5-10.1) mg/dL Magnesium (1.8-2.4) mg/dL Total Bilirubin (0.2-1.0) mg/dL AST (15-37) U/L ALT (12-78) U/L Alkaline Phosphatase (46-116) U/L Total Protein (6.4-8.2) g/dL Albumin (3.4-5.0) g/dL Globulin (2.3-3.5) g/dL Albumin/Globulin Ratio (1.2-2.2) SARS Virus RNA (PCR) Negative (NEGATIVE) 04/07/20 04/08/20 04/08/20 Range/Units 22:00 04:41 04:41 WBC 37.5 H* (4.5-11.0) K/uL RBC 2.56 L (4.30-5.90) M/uL Hgb 8.2 L (12.0-15.0) g/dL Hct 25.0 L (40.0-54.0) % MCV 98 (80-98) fL MCH 32 H (27-31) pg MCHC 33 (32-36) % Plt Count 103 L (150-400) K/uL Neut % (Auto) 3 L (36-66) % Lymph % (Auto) 95 H (24-44) % [place] % (Auto) 2 (2-6) % Eos % (Auto) 0 L (2-4) % Baso % (Auto) 0 (0-1) % Sodium 130 L (140-148) mmol/L Potassium 4.2 (3.6-5.2) mmol/L Chloride 99 L (100-108) mmol/L Carbon Dioxide 22 (21-32) mmol/L Anion Gap 13.2 (5.0-14.0) mmol/L BUN 26 H (7-18) mg/dL Creatinine 1.3 (0.8-1.3) mg/dL Est Cr Clr Drug Dosing 35.17 mL/min Estimated GFR (MDRD) 53 L (>60) BUN/Creatinine Ratio Glucose 128 H (74-106) mg/dL POC Glucose 180 H (74-106) MG/DL Calcium 7.6 L (8.5-10.1) mg/dL Magnesium (1.8-2.4) mg/dL Total Bilirubin (0.2-1.0) mg/dL AST (15-37) U/L ALT (12-78) U/L Alkaline Phosphatase (46-116) U/L Total Protein (6.4-8.2) g/dL Albumin (3.4-5.0) g/dL Globulin (2.3-3.5) g/dL Albumin/Globulin Ratio (1.2-2.2) SARS Virus RNA (PCR) (NEGATIVE) 04/08/20 Range/Units 07:30 WBC (4.5-11.0) K/uL RBC (4.30-5.90) M/uL Hgb (12.0-15.0) g/dL Hct (40.0-54.0) % MCV (80-98) fL MCH (27-31) pg MCHC (32-36) % Plt Count (150-400) K/uL Neut % (Auto) (36-66) % Lymph % (Auto) (24-44) % [place] % (Auto) (2-6) % Eos % (Auto) (2-4) % Baso % (Auto) (0-1) % Sodium (140-148) mmol/L Potassium (3.6-5.2) mmol/L Chloride (100-108) mmol/L Carbon Dioxide (21-32) mmol/L Anion Gap (5.0-14.0) mmol/L BUN (7-18) mg/dL Creatinine (0.8-1.3) mg/dL Est Cr Clr Drug Dosing mL/min Estimated GFR (MDRD) (>60) BUN/Creatinine Ratio Glucose (74-106) mg/dL POC Glucose 169 H (74-106) MG/DL Calcium (8.5-10.1) mg/dL Magnesium (1.8-2.4) mg/dL Total Bilirubin (0.2-1.0) mg/dL AST (15-37) U/L ALT (12-78) U/L Alkaline Phosphatase (46-116) U/L Total Protein (6.4-8.2) g/dL Albumin (3.4-5.0) g/dL Globulin (2.3-3.5) g/dL Albumin/Globulin Ratio (1.2-2.2) SARS Virus RNA (PCR) (NEGATIVE) Med Orders - Current: Current Medications Acetaminophen (Tylenol) 650 mg PO Q4H PRN PRN Reason: Pain (Mild 1-3)/fever Last Admin: 04/08/20 09:17 Dose: 650 mg Documented by: Dextrose (Glutose 15) 15 gm PO ONETIME PRN PRN Reason: Hypoglycemia Last Admin: 04/07/20 21:04 Dose: 15 gm Documented by: Dextrose/Water (Dextrose 50% In Water) 50 ml IV ONETIME PRN PRN Reason: Hypoglycemia Last Admin: 04/07/20 21:41 Dose: 50 ml Documented by: Folic Acid (Folic Acid) 1 mg PO DAILY [facility] Last Admin: 04/08/20 08:20 Dose: 1 mg Documented by: Dextrose/Sodium Chloride (Dextrose 5%-Normal Saline) 1,000 mls @ 100 mls/hr IV ASDIRECTED [facility] Last Admin: 04/07/20 21:52 Dose: 100 mls/hr Documented by: Vancomycin HCl 1 gm/ Sodium (Chloride) 250 mls @ 166.667 mls/hr IV Q24H [facility] Last Admin: 04/08/20 08:19 Dose: 166.667 mls/hr Documented by: Piperacillin/Tazobactam/ (Dextrose 3.375 gm/ Premix) 50 mls @ 100 mls/hr IV Q6H [facility] Insulin Glargine (Lantus Solostar) 10 units SUBCUT BEDTIME [facility] Last Admin: 04/06/20 21:28 Dose: 10 units Documented by: Insulin Human Lispro (Humalog) 0 unit SUBCUT QIDACANDBED [facility]; Protocol Last Admin: 04/08/20 08:24 Dose: 1 unit Documented by: Ondansetron HCl (Zofran) 4 mg IV Q4H PRN PRN Reason: Nausea/Vomiting Last Admin: 04/06/20 12:42 Dose: 4 mg Documented by: Pantoprazole Sodium (Protonix) 40 mg PO ACBREAKFAST [facility] Last Admin: 04/08/20 08:20 Dose: 40 mg Documented by: Pravastatin 40 Mg (TabPom) 0 each PO DAILY [facility] Last Admin: 04/08/20 08:21 Dose: 1 each Documented by: Metformin 1000 Mg (TabPom) 0 each PO BIDMEALS [facility] Last Admin: 04/08/20 08:20 Dose: Not Given Documented by: Polyethylene Glycol (Miralax) 17 gm PO DAILY PRN PRN Reason: Constipation Sodium Chloride (Saline Flush) 10 ml FLUSH ASDIRECTED PRN PRN Reason: Keep Vein Open Vancomycin HCl (Vancomycin) 0 gm IV .PHARMACY TO DOSE [facility] Discontinued Medications Glipizide (Glucotrol Xl) 10 mg PO BIDMEALS [facility] Last Admin: 04/06/20 08:08 Dose: 10 mg Documented by: Sodium Chloride (Normal Saline) 1,000 mls @ 250 mls/hr IV ASDIRECTED [facility] Last Admin: 04/05/20 10:38 Dose: 250 mls/hr Documented by: Sodium Chloride (Normal Saline) 1,000 mls @ 100 mls/hr IV ASDIRECTED [facility] Last Admin: 04/07/20 15:34 Dose: 100 mls/hr Documented by: Piperacillin Sod/Tazobactam (Sod 2.25 gm/ Sodium Chloride) 50 mls @ 100 mls/hr IV Q6H [facility] Last Admin: 04/08/20 06:31 Dose: 100 mls/hr Documented by: Lidocaine HCl (Xylocaine 2% Jelly) 10 ml [facility] ONETIME ONE Stop: 04/08/20 10:25 Last Admin: 04/08/20 10:49 Dose: 10 ml Documented by: Metformin HCl (Glucophage) 1,000 mg PO BIDMEALS [facility] Last Admin: 04/06/20 08:08 Dose: 1,000 mg Documented by: Glipizide 10 Mg Tab* (*Pom) 0 each PO BIDMEALS [facility] Last Admin: 04/08/20 08:20 Dose: Not Given Documented by: Pravastatin Sodium (Pravachol) 40 mg PO DAILY [facility] Last Admin: 04/06/20 08:08 Dose: 40 mg Documented by: - Exam Quality Assessment: No: Supplemental Oxygen General: Alert, Oriented, Cooperative, No Acute Distress HEENT: No: Scleral Icterus Lungs: Clear to Auscultation, Normal Respiratory Effort Cardiovascular: Regular Rate, Regular Rhythm GI/Abdominal Exam: Soft, No Distention Extremities: No Pedal Edema. No: Increased Warmth Skin: Warm, Dry Neurological: Strength Equal Bilateral, Other (slight left factial droop. EOM intact. Pupils equal ). No: Normal Speech Psy/Mental Status: Alert, Normal Affect Sepsis Event Note - Evaluation Sepsis Screening Result: No Definite Risk - Focused Exam Vital Signs: Vital Signs Temp Temp Pulse Resp BP Pulse Ox 04/08/20 09:17 38.2 C H 04/08/20 08:27 35.6 C L 71 16 118/41 L 96 04/08/20 06:23 37 C 04/08/20 05:53 39.5 C H 04/08/20 05:46 39.5 C H 93 20 142/48 H 95 04/08/20 02:20 35.5 C L 96 20 119/53 L 98 Date Exam was Performed: 04/08/20 Time Exam was Performed: 13:04 - Problem List Review Problem List Initiated/Reviewed/Updated: Yes - My Orders Last 24 Hours: My Active Orders 04/08/20 10:24 Urinary Catheter Assessment [RC] ASDIRECTED 04/08/20 10:30 Insert Urinary Catheter [OM.PC] Q24H 04/08/20 10:52 Consult to Speech Language Pathology [AIR POLLUTION SPECIALIST Evaluation and Treatment] [CONS] Routine 04/08/20 Lunch Pureed Diet [DIET] Thickened Liquids [DIET] 04/09/20 05:00 BASIC METABOLIC PANEL,BMP [CHEM] Timed CBC W/O DIFF,HEMOGRAM [HEME] Timed (1) - Plan Plan:: ASSESSMENT AND PLAN ASPIRATION PNEUMONIA-chest x-ray not very impressive yet but he has abnormal lung sounds in the right lower chest. He is not hypoxic as of yet. He is on broad-spectrum antibiotics. -Continue broad-spectrum antibiotics -Supplement oxygen if needed -Speech pathology evaluation to assess his swallow POSSIBLE STROKE-head CT was unremarkable but with double vision, difficulty swallowing and difficulty with speech and MRI is planned for further evaluation. Symptoms have slowly been evolving and he is far outside the window for any sort of intervention at this time. -MRI of the brain SEVERE ANEMIA-secondary to underlying chronic lymphocytic leukemia as well as B12 deficiency. Hemoglobin stable following transfusion. -Follow-up hemoglobin in a.m. 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 TYPE 2 DIABETES MELLITUS-sugars have been on the low side. He is not eating well. -Hold long-acting insulin, metformin and glipizide -4 times daily glucometers -Low-dose sliding scale Humalog MAINTENANCE ISSUES -DVT prophylaxis; not a candidate for anticoagulation because of severe anemia, SCUDs -GI prophylaxis; PPI -Nutrition; consistent carbohydrate diet -Nicotine dependence; not required ADMISSION STATUS-this patient was initially admitted as observation status for blood transfusion. He has developed a high fever with concern for aspiration pneumonia as well as possibly a stroke. He will be transitioned to inpatient status. DISPOSITION-anticipate discharge to the intermediate for subacute rehab after the hospital stay. Brandon Dominique MD
[2020-04-08] MEDS: Piperacillin/Tazobactam/Dext 3.375 GM in Premix Bag 1 BAG IV SCH ×2 (13:57→18:26)
[2020-04-08] MEDS ORDERED: Gadoteridol 279.3 MG/ML 15 ML SDV IV SCH (14:00)
--- NOTE | 2020-04-08 14:43 | MR ---
Brain w wo Cont CLINICAL HISTORY: Fall, double vision COMPARISON: CT brain 04/07/2020 TECHNIQUE: Multiple pulse sequences were obtained through the brain in the axial, coronal, and sagittal planes both pre-and post IV contrast infusion gadolinium-based contrast. All images were obtained on a 1.5 Delilah unit. FINDINGS: There is some motion artifact. Diffusion images show no abnormal signal. There is no focal mass lesion. There is no hemorrhage, edema, or extraaxial collection. There are a few scattered small T2 foci in the periventricular and subcortical white matter bilaterally The basal cisterns and sulci over the convexities are prominent. The ventricles are mildly prominent. Postcontrast images shows no enhancing lesions or abnormal vascular patterns. IMPRESSION: Age-related atrophy Chronic ischemic microvascular changes No acute intracranial assess identified
[2020-04-08] MEDS ORDERED: Ibuprofen 600 MG Tab PO PRN (15:00)
[2020-04-08] MEDS: Dextrose 5%-0.9% NaCl 1,000 ML IV SCH (22:05)
[2020-04-09] MEDS: Piperacillin/Tazobactam/Dext 3.375 GM in Premix Bag 1 BAG IV SCH ×3 (00:55→13:11)
[2020-04-09] MEDS ORDERED: Acetaminophen 650 MG Supp RECTAL ONE (01:02)
[2020-04-09] MEDS ORDERED: Acetaminophen 1,000 MG in Premix Bag 1 BAG IV ONE (04:33)
[2020-04-09] MEDS: Insulin Lispro 100 Unit/ML 3 ML KwikPen SUBCUT SCH ×2 (08:25→13:13)
[2020-04-09] MEDS: Pantoprazole 40 MG Tab.CR PO SCH (08:27)
[2020-04-09] MEDS: METFORMIN 1000 MG PO SCH (08:27)
[2020-04-09] MEDS: FOLIC ACID 1 MG PO SCH (08:27)
[2020-04-09] MEDS: PRAVASTATIN 40 MG PO SCH (08:27)
[2020-04-09] MEDS ORDERED: Ketorolac 30 MG/ML SDV IVPUSH PRN (10:06)
[2020-04-09] MEDS ORDERED: Acetaminophen 650 MG Supp RECTAL PRN (10:06)
[2020-04-09] MEDS ORDERED: Dexamethasone 4 MG/ML SDV IVPUSH SCH (10:30)
[2020-04-09] MEDS ORDERED: Doxycycline 100 MG in Sodium Chloride 0.9% 100 ML IV SCH (11:00)
[2020-04-09] MEDS ORDERED: Morphine 2 MG/ML SYRINGE IVPUSH PRN (13:00)
[2020-04-09] MEDS ORDERED: Sodium Chloride 0.9% 1,000 ML IV SCH (14:30)
--- NOTE | 2020-04-09 14:58 | PCM.PN ---
- General Info Date of Service: 04/09/20 Subjective Update: There were no acute events overnight but the patient has had additional deterioration since yesterday. He does not seem to be able to produce any speech but does seem to understand and can grasp fingers and squeeze in response to questions. His vital signs have been stable for the most part. Laboratory studies are stable. He did have a temperature elevation much of the night and this has been difficult to get down. He is significantly more weak today than yesterday. He is unable to provide any history at this time because of weakness and lethargy. - Patient Data Vitals - Most Recent: Last Vital Signs Temp 37.5 C 04/09/20 14:08 Pulse 146 H 04/09/20 14:08 Resp 18 04/09/20 14:08 BP 140/63 04/09/20 14:08 Pulse Ox 98 04/09/20 14:08 Weight - Most Recent: 60.781 kg I&O - Last 24 Hours: Intake & Output 04/08/20 04/09/20 04/09/20 22:59 06:59 14:59 Intake Total 2077 Balance 2077 Lab Results Last 24 Hours: Laboratory Results - last 24 hr 04/08/20 04/09/20 04/09/20 Range/Units 21:00 05:45 05:45 WBC 37.3 H* (4.5-11.0) K/uL RBC 2.45 L (4.30-5.90) M/uL Hgb 7.8 L (12.0-15.0) g/dL Hct 24.0 L (40.0-54.0) % MCV 98 (80-98) fL MCH 32 H (27-31) pg MCHC 33 (32-36) % Plt Count 83 L (150-400) K/uL Sodium 131 L (140-148) mmol/L Potassium 3.7 (3.6-5.2) mmol/L Chloride 99 L (100-108) mmol/L Carbon Dioxide 21 (21-32) mmol/L Anion Gap 14.7 H (5.0-14.0) mmol/L BUN 21 H (7-18) mg/dL Creatinine 1.4 H (0.8-1.3) mg/dL Est Cr Clr Drug Dosing 33.77 mL/min Estimated GFR (MDRD) 48 L (>60) Glucose 194 H (74-106) mg/dL POC Glucose 241 H (74-106) MG/DL Calcium 7.3 L (8.5-10.1) mg/dL CSF Tube Number CSF Volume mls CSF Appearance (CLEAR) CSF Color (COLORLESS) CSF WBC (0-5) /ul CSF RBC (0-0) /ul CSF Mononuclear Cells (54-100) % CSF Polymorphonuclear (0-7) % CSF Glucose (40-70) mg/dL CSF Total Protein (15-45) mg/dL 04/09/20 04/09/20 04/09/20 Range/Units 07:30 10:38 10:38 WBC (4.5-11.0) K/uL RBC (4.30-5.90) M/uL Hgb (12.0-15.0) g/dL Hct (40.0-54.0) % MCV (80-98) fL MCH (27-31) pg MCHC (32-36) % Plt Count (150-400) K/uL Sodium (140-148) mmol/L Potassium (3.6-5.2) mmol/L Chloride (100-108) mmol/L Carbon Dioxide (21-32) mmol/L Anion Gap (5.0-14.0) mmol/L BUN (7-18) mg/dL Creatinine (0.8-1.3) mg/dL Est Cr Clr Drug Dosing mL/min Estimated GFR (MDRD) (>60) Glucose (74-106) mg/dL POC Glucose 235 H (74-106) MG/DL Calcium (8.5-10.1) mg/dL CSF Tube Number 3 CSF Volume 1.5 mls CSF Appearance Clear (CLEAR) CSF Color Colorless (COLORLESS) CSF WBC 41 H (0-5) /ul CSF RBC 31 H (0-0) /ul CSF Mononuclear Cells 95 (54-100) % CSF Polymorphonuclear 5 (0-7) % CSF Glucose 85 H (40-70) mg/dL CSF Total Protein > 250 H (15-45) mg/dL 04/09/20 Range/Units 11:30 WBC (4.5-11.0) K/uL RBC (4.30-5.90) M/uL Hgb (12.0-15.0) g/dL Hct (40.0-54.0) % MCV (80-98) fL MCH (27-31) pg MCHC (32-36) % Plt Count (150-400) K/uL Sodium (140-148) mmol/L Potassium (3.6-5.2) mmol/L Chloride (100-108) mmol/L Carbon Dioxide (21-32) mmol/L Anion Gap (5.0-14.0) mmol/L BUN (7-18) mg/dL Creatinine (0.8-1.3) mg/dL Est Cr Clr Drug Dosing mL/min Estimated GFR (MDRD) (>60) Glucose (74-106) mg/dL POC Glucose 192 H (74-106) MG/DL Calcium (8.5-10.1) mg/dL CSF Tube Number CSF Volume mls CSF Appearance (CLEAR) CSF Color (COLORLESS) CSF WBC (0-5) /ul CSF RBC (0-0) /ul CSF Mononuclear Cells (54-100) % CSF Polymorphonuclear (0-7) % CSF Glucose (40-70) mg/dL CSF Total Protein (15-45) mg/dL Marc Results Last 24 Hours: Microbiology 04/09/20 11:45 Gram Stain - Final Cerebral Spinal Fluid 04/08/20 06:06 Aerobic Blood Culture - Preliminary Blood - Venous - Lab Draw NO GROWTH AFTER 1 DAY Anaerobic Blood Culture - Preliminary NO GROWTH AFTER 1 DAY 04/08/20 06:02 Aerobic Blood Culture - Preliminary Blood - Venous NO GROWTH AFTER 1 DAY Anaerobic Blood Culture - Preliminary NO GROWTH AFTER 1 DAY Med Orders - Current: Current Medications Acetaminophen (Tylenol) 650 mg PO Q4H PRN PRN Reason: Pain (Mild 1-3)/fever Last Admin: 04/08/20 13:57 Dose: 650 mg Documented by: Acetaminophen (Tylenol) 650 mg RECTAL Q4H PRN PRN Reason: Fever Dexamethasone (Dexamethasone) 4 mg IVPUSH Q12H [facility] Last Admin: 04/09/20 10:52 Dose: 4 mg Documented by: Dextrose (Glutose 15) 15 gm PO ONETIME PRN PRN Reason: Hypoglycemia Last Admin: 04/07/20 21:04 Dose: 15 gm Documented by: Dextrose/Water (Dextrose 50% In Water) 50 ml IV ONETIME PRN PRN Reason: Hypoglycemia Last Admin: 04/07/20 21:41 Dose: 50 ml Documented by: Folic Acid (Folic Acid) 1 mg PO DAILY [facility] Last Admin: 04/09/20 08:27 Dose: Not Given Documented by: Dextrose/Sodium Chloride (Dextrose 5%-Normal Saline) 1,000 mls @ 25 mls/hr IV ASDIRECTED [facility] Last Admin: 04/08/20 22:05 Dose: 100 mls/hr Documented by: Vancomycin HCl 1 gm/ Sodium (Chloride) 250 mls @ 166.667 mls/hr IV Q24H [facility] Last Admin: 04/09/20 08:39 Dose: 166.667 mls/hr Documented by: Piperacillin/Tazobactam/ (Dextrose 3.375 gm/ Premix) 50 mls @ 100 mls/hr IV Q6H [facility] Last Admin: 04/09/20 13:11 Dose: 100 mls/hr Documented by: Doxycycline Hyclate 100 mg/ (Sodium Chloride) 100 mls @ 100 mls/hr IV Q12H [facility] Last Admin: 04/09/20 11:07 Dose: 100 mls/hr Documented by: Sodium Chloride (Normal Saline) 1,000 mls @ 999 mls/hr IV ASDIRECTED [facility] Stop: 04/09/20 15:31 Insulin Human Lispro (Humalog) 0 unit SUBCUT QIDACANDBED [facility]; Protocol Last Admin: 04/09/20 13:13 Dose: 1 unit Documented by: Ketorolac Tromethamine (Toradol) 15 mg IVPUSH Q8H PRN PRN Reason: Fever Stop: 04/14/20 10:06 Last Admin: 04/09/20 10:51 Dose: 15 mg Documented by: Morphine Sulfate (Morphine) 2 mg IVPUSH Q2H PRN PRN Reason: Pain Last Admin: 04/09/20 13:11 Dose: 2 mg Documented by: Ondansetron HCl (Zofran) 4 mg IV Q4H PRN PRN Reason: Nausea/Vomiting Last Admin: 04/06/20 12:42 Dose: 4 mg Documented by: Pantoprazole Sodium (Protonix) 40 mg PO ACBREAKFAST [facility] Last Admin: 04/09/20 08:27 Dose: Not Given Documented by: Pravastatin 40 Mg (TabPom) 0 each PO DAILY [facility] Last Admin: 04/09/20 08:27 Dose: Not Given Documented by: Metformin 1000 Mg (TabPom) 0 each PO BIDMEALS [facility] Last Admin: 04/09/20 08:27 Dose: Not Given Documented by: Polyethylene Glycol (Miralax) 17 gm PO DAILY PRN PRN Reason: Constipation Sodium Chloride (Saline Flush) 10 ml FLUSH ASDIRECTED PRN PRN Reason: Keep Vein Open Discontinued Medications Acetaminophen (Tylenol) 650 mg RECTAL NOW ONE Stop: 04/09/20 01:03 Last Admin: 04/09/20 01:38 Dose: 650 mg Documented by: Gadoteridol (Prohance) 15 ml IV .A DIRECTED [facility] Stop: 04/08/20 14:01 Last Admin: 04/08/20 13:27 Dose: 15 ml Documented by: Glipizide (Glucotrol Xl) 10 mg PO BIDMEALS [facility] Last Admin: 04/06/20 08:08 Dose: 10 mg Documented by: Sodium Chloride (Normal Saline) 1,000 mls @ 250 mls/hr IV ASDIRECTED [facility] Last Admin: 04/05/20 10:38 Dose: 250 mls/hr Documented by: Sodium Chloride (Normal Saline) 1,000 mls @ 100 mls/hr IV ASDIRECTED [facility] Last Admin: 04/07/20 15:34 Dose: 100 mls/hr Documented by: Piperacillin Sod/Tazobactam (Sod 2.25 gm/ Sodium Chloride) 50 mls @ 100 mls/hr IV Q6H [facility] Last Admin: 04/08/20 06:31 Dose: 100 mls/hr Documented by: Acetaminophen 1,000 mg/ Premix 100 mls @ 400 mls/hr IV NOW ONE Stop: 04/09/20 04:47 Last Admin: 04/09/20 04:57 Dose: 400 mls/hr Documented by: Ibuprofen (Motrin) 600 mg PO Q8H PRN PRN Reason: fever Last Admin: 04/08/20 16:26 Dose: 600 mg Documented by: Insulin Glargine (Lantus Solostar) 10 units SUBCUT BEDTIME [facility] Last Admin: 04/06/20 21:28 Dose: 10 units Documented by: Lidocaine HCl (Xylocaine 2% Jelly) 10 ml MUCMEM ONETIME ONE Stop: 04/08/20 10:25 Last Admin: 04/08/20 10:49 Dose: 10 ml Documented by: Metformin HCl (Glucophage) 1,000 mg PO BIDMEALS [facility] Last Admin: 04/06/20 08:08 Dose: 1,000 mg Documented by: Glipizide 10 Mg Tab* (*Pom) 0 each PO BIDMEALS [facility] Last Admin: 04/08/20 08:20 Dose: Not Given Documented by: Pravastatin Sodium (Pravachol) 40 mg PO DAILY [facility] Last Admin: 04/06/20 08:08 Dose: 40 mg Documented by: Vancomycin HCl (Vancomycin) 0 gm IV .PHARMACY TO DOSE [facility] - Exam Quality Assessment: No: Supplemental Oxygen General: Alert, Cooperative, No Acute Distress, Lethargic HEENT: Pupils Equal, Pupils Reactive Lungs: Clear to Auscultation, Normal Respiratory Effort Cardiovascular: Regular Rate, Regular Rhythm GI/Abdominal Exam: Normal Bowel Sounds, Soft, Non-Tender, No Distention Extremities: No Pedal Edema. No: Increased Warmth Skin: Warm, Dry. No: Rash Psy/Mental Status: Alert. No: Agitated Sepsis Event Note - Evaluation Sepsis Screening Result: No Definite Risk - Focused Exam Vital Signs: Vital Signs Temp Pulse Resp BP Pulse Ox 04/09/20 14:08 37.5 C 146 H 18 140/63 98 04/09/20 10:07 39.5 C H 98 20 127/65 99 04/09/20 06:25 37.6 C 89 20 139/63 97 04/09/20 05:50 38.3 C H 04/09/20 04:26 39.2 C H Date Exam was Performed: 04/09/20 Time Exam was Performed: 14:53 - Problem List Review Problem List Initiated/Reviewed/Updated: Yes - My Orders Last 24 Hours: My Active Orders 04/08/20 Dinner Mechanical Soft Diet [DIET] 04/09/20 10:06 Acetaminophen [Tylenol] 650 mg RECTAL Q4H PRN Ketorolac [Toradol] 15 mg IVPUSH Q8H PRN 04/09/20 10:30 dexAMETHasone [Dexamethasone] 4 mg IVPUSH Q12H 04/09/20 10:36 Resuscitation Status Routine 04/09/20 10:37 Consult to Physician [CONS] Routine 04/09/20 10:38 Notify Provider Consults [RC] ASDIRECTED 04/09/20 11:00 Doxycycline [Vibramycin] 100 mg Sodium Chloride 0.9% [Normal Saline] 100 ml IV Q12H 04/09/20 11:45 CULTURE CSF + SMEAR [RM] Stat 04/09/20 13:00 Morphine 2 mg IVPUSH Q2H PRN 04/09/20 13:09 [place] VIRUS ANTIBODY, CSF Stat 04/09/20 14:30 Sodium Chloride 0.9% [Normal Saline] 1,000 ml IV ASDIRECTED 04/09/20 16:30 GLUCOSE POC LAB TO COLLECT JPM [POC] QIDACANDBED 04/09/20 21:00 GLUCOSE POC LAB TO COLLECT JPM [POC] QIDACANDBED 04/10/20 05:00 CBC W/O DIFF,HEMOGRAM [HEME] Timed (1) COMPREHENSIVE METABOLIC PN,CMP [CHEM] Timed MAGNESIUM [CHEM] Timed 04/10/20 07:30 GLUCOSE POC LAB TO COLLECT JPM [POC] QIDACANDBED 04/10/20 11:30 GLUCOSE POC LAB TO COLLECT JPM [POC] QIDACANDBED 04/10/20 16:30 GLUCOSE POC LAB TO COLLECT JPM [POC] QIDACANDBED 04/10/20 21:00 GLUCOSE POC LAB TO COLLECT JPM [POC] QIDACANDBED 04/11/20 07:30 GLUCOSE POC LAB TO COLLECT JPM [POC] QIDACANDBED 04/11/20 11:30 GLUCOSE POC LAB TO COLLECT JPM [POC] QIDACANDBED 04/11/20 16:30 GLUCOSE POC LAB TO COLLECT JPM [POC] QIDACANDBED 04/11/20 21:00 GLUCOSE POC LAB TO COLLECT JPM [POC] QIDACANDBED 04/12/20 07:30 GLUCOSE POC LAB TO COLLECT JPM [POC] QIDACANDBED 04/12/20 11:30 GLUCOSE POC LAB TO COLLECT JPM [POC] QIDACANDBED - Plan Plan:: ASSESSMENT AND PLAN FEVER AND PROGRESSIVE WEAKNESS-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 He has had progression of his weakness and difficulty with speech since yesterday. He has been persistently febrile. Lumbar puncture today revealed fairly normal cell counts with some mononuclear cells. His glucose was acceptable. Protein was elevated. West Nile virus antibody testing was collected. Patient is on broad-spectrum antibiotics. This could be viral versus less likely bacterial or potentially related to Lyme disease. His does not think that he would want heroic measures beyond what are available at this hospital. -Broad-spectrum antibiotic coverage with doxycycline, Pip/Tazo and vancomycin -Trial of high-dose steroids -Serologies for tickborne illness in the morning -Follow-up West Nile virus serologies ASPIRATION PNEUMONIA, SUSPECTED-chest x-ray not very impressive and he has not been hypoxic. He did have a witnessed episode of aspiration. -Continue broad-spectrum antibiotics -Supplement oxygen if needed -Speech pathology evaluation to assess his swallow SEVERE ANEMIA-secondary to underlying chronic lymphocytic leukemia as well as B12 deficiency. Hemoglobin stable following transfusion. -Follow-up hemoglobin in a.m. 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 TYPE 2 DIABETES MELLITUS-sugars have been stable but on the low side. -Hold long-acting insulin, metformin and glipizide -4 times daily glucometers -Low-dose sliding scale Humalog MAINTENANCE ISSUES -DVT prophylaxis; not a candidate for anticoagulation because of severe anemia, SCUDs -GI prophylaxis; PPI -Nutrition; consistent carbohydrate diet -Nicotine dependence; not required ADMISSION STATUS-this patient was initially admitted as observation status for blood transfusion. He has developed a high fever with concern for aspiration pneumonia as well as possibly a stroke. He will be transitioned to inpatient status. DISPOSITION-[facility] if he survives the the hospital stay. He has had a significant decline in the past 48 hours. He is DO NOT RESUSCITATE and DO NOT INTUBATE. At this point I am not sure what a higher level of care would have to offer and his is comfortable with us continuing to provide supportive care here in the hospital. Brandon Dominique MD
[2020-04-09] MEDS ORDERED: LORazepam 2 MG/ML SDV IVPUSH PRN (15:39)
[2020-04-09] MEDS: Morphine 2 MG/ML SYRINGE IVPUSH PRN ×3 (15:52→23:25)
[2020-04-10] MEDS: Morphine 2 MG/ML SYRINGE IVPUSH PRN ×3 (04:12→11:05)
[2020-04-10] MEDS ORDERED: Morphine 10 MG/0.5 ML Oral Syringe PO PRN (13:39)
[2020-04-10] MEDS ORDERED: LORazepam ORAL Concentrate 1MG/0.5ML U/D PO PRN (13:39)
--- NOTE | 2020-04-10 13:39 | PCM.PN ---
- General Info Date of Service: 04/10/20 Subjective Update: No acute events overnight. Patient has been comfortable. He is not responsive today. He continues to be tachypneic but does not appear to be in any acute distress. Infrequent vital signs reveal ongoing trouble with fever. Multiple family members present at the bedside. Functional Status: Reports: Pain Controlled - Review of Systems General: Reports: Fever - Patient Data Vitals - Most Recent: Last Vital Signs Temp 36.8 C 04/10/20 09:35 Pulse 115 H 04/10/20 08:06 Resp 24 H 04/10/20 08:06 BP 144/58 H 04/10/20 08:06 Pulse Ox 91 L 04/10/20 08:06 Weight - Most Recent: 60.781 kg Marc Results Last 24 Hours: Microbiology 04/09/20 11:45 Gram Stain - Final Cerebral Spinal Fluid CSF Culture - Preliminary NO GROWTH AFTER 1 DAY 04/08/20 06:06 Aerobic Blood Culture - Preliminary Blood - Venous - Lab Draw NO GROWTH AFTER 2 DAYS Anaerobic Blood Culture - Preliminary NO GROWTH AFTER 2 DAYS 04/08/20 06:02 Aerobic Blood Culture - Preliminary Blood - Venous NO GROWTH AFTER 2 DAYS Anaerobic Blood Culture - Preliminary NO GROWTH AFTER 2 DAYS Med Orders - Current: Current Medications Acetaminophen (Tylenol) 650 mg PO Q4H PRN PRN Reason: Pain (Mild 1-3)/fever Last Admin: 04/08/20 13:57 Dose: 650 mg Documented by: Acetaminophen (Tylenol) 650 mg RECTAL Q4H PRN PRN Reason: Fever Ketorolac Tromethamine (Toradol) 15 mg IVPUSH Q8H PRN PRN Reason: Fever Stop: 04/14/20 10:06 Last Admin: 04/09/20 10:51 Dose: 15 mg Documented by: Lorazepam (Ativan) 0.5 mg IVPUSH Q1H PRN PRN Reason: Anxiety Morphine Sulfate (Morphine) 2 mg IVPUSH Q1H PRN PRN Reason: Pain Last Admin: 04/10/20 11:05 Dose: 2 mg Documented by: Ondansetron HCl (Zofran) 4 mg IV Q4H PRN PRN Reason: Nausea/Vomiting Last Admin: 04/06/20 12:42 Dose: 4 mg Documented by: Sodium Chloride (Saline Flush) 10 ml FLUSH ASDIRECTED PRN PRN Reason: Keep Vein Open Last Admin: 04/10/20 07:59 Dose: 10 ml Documented by: Discontinued Medications Acetaminophen (Tylenol) 650 mg RECTAL NOW ONE Stop: 04/09/20 01:03 Last Admin: 04/09/20 01:38 Dose: 650 mg Documented by: Dexamethasone (Dexamethasone) 4 mg IVPUSH Q12H [facility] Last Admin: 04/09/20 10:52 Dose: 4 mg Documented by: Dextrose (Glutose 15) 15 gm PO ONETIME PRN PRN Reason: Hypoglycemia Last Admin: 04/07/20 21:04 Dose: 15 gm Documented by: Dextrose/Water (Dextrose 50% In Water) 50 ml IV ONETIME PRN PRN Reason: Hypoglycemia Last Admin: 04/07/20 21:41 Dose: 50 ml Documented by: Folic Acid (Folic Acid) 1 mg PO DAILY [facility] Last Admin: 04/09/20 08:27 Dose: Not Given Documented by: Gadoteridol (Prohance) 15 ml IV .A DIRECTED [facility] Stop: 04/08/20 14:01 Last Admin: 04/08/20 13:27 Dose: 15 ml Documented by: Glipizide (Glucotrol Xl) 10 mg PO BIDMEALS [facility] Last Admin: 04/06/20 08:08 Dose: 10 mg Documented by: Sodium Chloride (Normal Saline) 1,000 mls @ 250 mls/hr IV ASDIRECTED [facility] Last Admin: 04/05/20 10:38 Dose: 250 mls/hr Documented by: Sodium Chloride (Normal Saline) 1,000 mls @ 100 mls/hr IV ASDIRECTED [facility] Last Admin: 04/07/20 15:34 Dose: 100 mls/hr Documented by: Dextrose/Sodium Chloride (Dextrose 5%-Normal Saline) 1,000 mls @ 25 mls/hr IV ASDIRECTED [facility] Last Admin: 04/08/20 22:05 Dose: 100 mls/hr Documented by: Piperacillin Sod/Tazobactam (Sod 2.25 gm/ Sodium Chloride) 50 mls @ 100 mls/hr IV Q6H [facility] Last Admin: 04/08/20 06:31 Dose: 100 mls/hr Documented by: Vancomycin HCl 1 gm/ Sodium (Chloride) 250 mls @ 166.667 mls/hr IV Q24H [facility] Last Admin: 04/09/20 08:39 Dose: 166.667 mls/hr Documented by: Piperacillin/Tazobactam/ (Dextrose 3.375 gm/ Premix) 50 mls @ 100 mls/hr IV Q6H [facility] Last Admin: 04/09/20 13:11 Dose: 100 mls/hr Documented by: Acetaminophen 1,000 mg/ Premix 100 mls @ 400 mls/hr IV NOW ONE Stop: 04/09/20 04:47 Last Admin: 04/09/20 04:57 Dose: 400 mls/hr Documented by: Doxycycline Hyclate 100 mg/ (Sodium Chloride) 100 mls @ 100 mls/hr IV Q12H [facility] Last Admin: 04/09/20 11:07 Dose: 100 mls/hr Documented by: Sodium Chloride (Normal Saline) 1,000 mls @ 999 mls/hr IV ASDIRECTED [facility] Stop: 04/09/20 15:31 Ibuprofen (Motrin) 600 mg PO Q8H PRN PRN Reason: fever Last Admin: 04/08/20 16:26 Dose: 600 mg Documented by: Insulin Glargine (Lantus Solostar) 10 units SUBCUT BEDTIME [facility] Last Admin: 04/06/20 21:28 Dose: 10 units Documented by: Insulin Human Lispro (Humalog) 0 unit SUBCUT QIDACANDBED [facility]; Protocol Last Admin: 04/09/20 13:13 Dose: 1 unit Documented by: Lidocaine HCl (Xylocaine 2% Jelly) 10 ml MUCMEM ONETIME ONE Stop: 04/08/20 10:25 Last Admin: 04/08/20 10:49 Dose: 10 ml Documented by: Metformin HCl (Glucophage) 1,000 mg PO BIDMEALS [facility] Last Admin: 04/06/20 08:08 Dose: 1,000 mg Documented by: Morphine Sulfate (Morphine) 2 mg IVPUSH Q2H PRN PRN Reason: Pain Last Admin: 04/09/20 13:11 Dose: 2 mg Documented by: Pantoprazole Sodium (Protonix) 40 mg PO ACBREAKFAST [facility] Last Admin: 04/09/20 08:27 Dose: Not Given Documented by: Pravastatin 40 Mg (TabPom) 0 each PO DAILY [facility] Last Admin: 04/09/20 08:27 Dose: Not Given Documented by: Metformin 1000 Mg (TabPom) 0 each PO BIDMEALS [facility] Last Admin: 04/09/20 08:27 Dose: Not Given Documented by: Glipizide 10 Mg Tab* (*Pom) 0 each PO BIDMEALS [facility] Last Admin: 04/08/20 08:20 Dose: Not Given Documented by: Polyethylene Glycol (Miralax) 17 gm PO DAILY PRN PRN Reason: Constipation Pravastatin Sodium (Pravachol) 40 mg PO DAILY [facility] Last Admin: 04/06/20 08:08 Dose: 40 mg Documented by: Vancomycin HCl (Vancomycin) 0 gm IV .PHARMACY TO DOSE [facility] - Exam General: No Acute Distress, Obtunded. No: Alert Lungs: No: Normal Respiratory Effort (increased work of breathing ), Wheezing Cardiovascular: Regular Rate, Regular Rhythm GI/Abdominal Exam: Soft, No Distention Extremities: No Pedal Edema. No: Increased Warmth, Mottled Skin: Warm, Dry Psy/Mental Status: No: Alert, Agitated Sepsis Event Note - Evaluation Sepsis Screening Result: Sepsis Risk - Focused Exam Vital Signs: Vital Signs Temp Pulse Resp BP Pulse Ox 04/10/20 09:35 36.8 C 04/10/20 08:06 37.8 C 115 H 24 H 144/58 H 91 L Date Exam was Performed: 04/10/20 Time Exam was Performed: 15:54 - Problem List Review Problem List Initiated/Reviewed/Updated: Yes - My Orders Last 24 Hours: My Active Orders 04/09/20 13:09 [place] VIRUS ANTIBODY, CSF Stat 04/09/20 15:37 Resuscitation Status Routine 04/09/20 15:39 LORazepam [Ativan] 0.5 mg IVPUSH Q1H PRN 04/09/20 15:40 Morphine 2 mg IVPUSH Q1H PRN 04/09/20 16:30 GLUCOSE POC LAB TO COLLECT JPM [POC] QIDACANDBED 04/09/20 21:00 GLUCOSE POC LAB TO COLLECT JPM [POC] QIDACANDBED - Plan Plan:: ASSESSMENT AND PLAN FEVER AND PROGRESSIVE WEAKNESS-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 Patient is now on comfort care only. Rapidly declining and is expected in a limited number of hours. -Morphine and lorazepam for comfort -Follow-up West Nile virus serologies ASPIRATION PNEUMONIA, SUSPECTED-chest x-ray not very impressive and he has not been hypoxic. He did have a witnessed episode of aspiration. -Comfort cares SEVERE ANEMIA-secondary to underlying chronic lymphocytic leukemia as well as B12 deficiency. Hemoglobin stable following transfusion. 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 TYPE 2 DIABETES MELLITUS-comfort care MAINTENANCE ISSUES -DVT prophylaxis; comfort care -GI prophylaxis; not indicated -Nutrition; not able to take anything by mouth DISPOSITION- home Brandon Dominique MD
--- NOTE | 2020-04-11 08:38 | PCM.DCSUM1 ---
Discharge Summary - Hospital Course Brief History: Mr. Morin is an 84-year-old gentleman who was admitted through the emergency department with severe weakness and recent falls secondary to severe anemia and underlying chronic lymphocytic leukemia. Diagnosis: Stroke: No - Discharge Data Discharge Date: 04/10/20 Discharge Disposition: 20 Condition: - Referral to Home Health Primary Care Physician: PCP None - Patient Summary/Data Consults: Consultations 04/09/20 10:37 Consult to Physician [CONS] Routine Consulting Provider: Junior Vallejo Call Completed to Consulting Physician: Yes Reason for Consult: LP Person Notified: DIMITRY Date Notified: 04/09/20 Labs Pending at D/C: West nile virus from CSF Hospital Course: Ed presented on April 05 with progressive weakness and was found to have significant anemia thought to be related to his CLL. He was admitted to the hospital with the plan for blood transfusion and some physical therapy. The next morning his hemoglobin did improve with the blood transfusion but he remained quite weak. He developed nausea with vomiting. Repeat laboratory studies were fairly unremarkable. He remained hospitalized for symptomatic management of the nausea with vomiting as well as weakness. On April 07 he developed double vision along with the persistent nausea and vomiting and progressive weakness. Repeat labs were unremarkable other than his elevated white count with CLL and anemia though this had improved after transfusion. A head CT was performed which was unremarkable. The plan was for him to remain hospitalized an additional day for an MRI the next morning with concern that he may have had a stroke though there were no focal deficits other than the double vision. Over the next 24 hours he had a further decline with increasing weakness and he also developed a fever. Broad-spectrum antibiotics were initiated though no obvious source was identified. There was some concern that there may have been an aspiration. He was not hypoxic however. By April 08 he was also having difficulty producing speech and had a very slight facial droop. We did complete an MRI which was unremarkable and showed no evidence for stroke. He had further progression of his weakness over that time as well. We continued the broad-spectrum antibiotics to cover possible aspiration. There is no evidence for a urinary tract infection. On April 09 he had even further progression of his weakness and strokelike symptoms with difficulty producing speech, facial droop and generalized weakness. He had persistent temperature elevations overnight. He had developed a headache and seemed to have increasing confusion as well. The folks from anesthesia came by and performed a lumbar puncture. The fluid was clear. Glucose was normal. Protein was elevated however. This was thought to be consistent with a viral meningitis. 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 Doxycycline was added to the treatment regimen. Steroids were added to the treatment regimen. Unfortunately as the day progressed the patient showed further decline. After several discussions with his she felt that this was beyond what he would deem acceptable for aggressiveness of care. She reported that he had been struggling even prior to hospitalization and had been declining fairly rapidly. She felt that quality of life is extremely important to him and had recently diminished significantly and appeared to be going downhill even further. I was concerned about viral meningeal encephalitis and we did discuss transfer to a higher level of care. She felt that a transition to comfort cares would be more fitting with his previously expressed wishes and we did review his advanced directive. We elected to discontinue all of his antibiotics and IV fluids. We transition to comfort cares with symptomatic management via morphine and lorazepam. The patient continued to decline over the next 24+ hours and on April 10. No attempts at resuscitation were made per his previously expressed wishes. His cause of is not entirely clear but he had a fairly rapid progression of neurologic decline with fevers, headaches and I was concerned about a viral meningitis/encephalitis. He had underlying CLL. CSF testing for West Nile virus is pending at the time of his . - Discharge Plan *PRESCRIPTION DRUG MONITORING PROGRAM REVIEWED*: Not Applicable *COPY OF PRESCRIPTION DRUG MONITORING REPORT IN PATIENT YOLANDA: Not Applicable Home Medications: Home Meds Folic Acid 1 mg PO DAILY 04/05/20 [History] Insulin Glarg,Human.Rec.Analog [Lantus Solostar] 10 unit SQ BEDTIME 04/05/20 [History] Omeprazole Magnesium [Prilosec] 20 mg PO DAILY 04/05/20 [History] Pravastatin [Pravachol] 40 mg PO DAILY 04/05/20 [History] glipiZIDE [Glucotrol XL] 10 mg PO BID 04/05/20 [History] metFORMIN [Glucophage XR] 1,000 mg PO BIDMEALS 04/05/20 [History] Referrals: Stormy Cadena DO [Physician] - 04/10/20 12:00 pm Keiry Begum MD [Ordering Only Provider] - 05/05/20 11:30 am - Discharge Summary/Plan Comment DC Time >30 min.: No - Patient Data Vitals - Most Recent: Last Vital Signs Temp 38.1 C 04/10/20 19:26 Pulse 107 H 04/10/20 19:26 Resp 32 H 04/10/20 19:26 BP 121/36 L 04/10/20 19:26 Pulse Ox 43 L 04/10/20 19:26 Weight - Most Recent: 60.781 kg ART Results - Last 24 hrs: Microbiology 04/09/20 11:45 Gram Stain - Final Cerebral Spinal Fluid CSF Culture - Preliminary NO GROWTH AFTER 2 DAYS 04/08/20 06:02 Aerobic Blood Culture - Preliminary Blood - Venous NO GROWTH AFTER 3 DAYS Anaerobic Blood Culture - Preliminary NO GROWTH AFTER 3 DAYS 04/08/20 06:06 Aerobic Blood Culture - Preliminary Blood - Venous - Lab Draw NO GROWTH AFTER 3 DAYS Anaerobic Blood Culture - Preliminary NO GROWTH AFTER 3 DAYS Med Orders - Current: Current Medications Discontinued Medications Acetaminophen (Tylenol) 650 mg PO Q4H PRN PRN Reason: Pain (Mild 1-3)/fever Last Admin: 04/08/20 13:57 Dose: 650 mg Documented by: Acetaminophen (Tylenol) 650 mg RECTAL NOW ONE Stop: 04/09/20 01:03 Last Admin: 04/09/20 01:38 Dose: 650 mg Documented by: Acetaminophen (Tylenol) 650 mg RECTAL Q4H PRN PRN Reason: Fever Dexamethasone (Dexamethasone) 4 mg IVPUSH Q12H [facility] Last Admin: 04/09/20 10:52 Dose: 4 mg Documented by: Dextrose (Glutose 15) 15 gm PO ONETIME PRN PRN Reason: Hypoglycemia Last Admin: 04/07/20 21:04 Dose: 15 gm Documented by: Dextrose/Water (Dextrose 50% In Water) 50 ml IV ONETIME PRN PRN Reason: Hypoglycemia Last Admin: 04/07/20 21:41 Dose: 50 ml Documented by: Folic Acid (Folic Acid) 1 mg PO DAILY [facility] Last Admin: 04/09/20 08:27 Dose: Not Given Documented by: Gadoteridol (Prohance) 15 ml IV .A DIRECTED DARSHAN Stop: 04/08/20 14:01 Last Admin: 04/08/20 13:27 Dose: 15 ml Documented by: Glipizide (Glucotrol Xl) 10 mg PO BIDMEALS [facility] Last Admin: 04/06/20 08:08 Dose: 10 mg Documented by: Sodium Chloride (Normal Saline) 1,000 mls @ 250 mls/hr IV ASDIRECTED [facility] Last Admin: 04/05/20 10:38 Dose: 250 mls/hr Documented by: Sodium Chloride (Normal Saline) 1,000 mls @ 100 mls/hr IV ASDIRECTED [facility] Last Admin: 04/07/20 15:34 Dose: 100 mls/hr Documented by: Dextrose/Sodium Chloride (Dextrose 5%-Normal Saline) 1,000 mls @ 25 mls/hr IV ASDIRECTED [facility] Last Admin: 04/08/20 22:05 Dose: 100 mls/hr Documented by: Piperacillin Sod/Tazobactam (Sod 2.25 gm/ Sodium Chloride) 50 mls @ 100 mls/hr IV Q6H [facility] Last Admin: 04/08/20 06:31 Dose: 100 mls/hr Documented by: Vancomycin HCl 1 gm/ Sodium (Chloride) 250 mls @ 166.667 mls/hr IV Q24H [facility] Last Admin: 04/09/20 08:39 Dose: 166.667 mls/hr Documented by: Piperacillin/Tazobactam/ (Dextrose 3.375 gm/ Premix) 50 mls @ 100 mls/hr IV Q6H [facility] Last Admin: 04/09/20 13:11 Dose: 100 mls/hr Documented by: Acetaminophen 1,000 mg/ Premix 100 mls @ 400 mls/hr IV NOW ONE Stop: 04/09/20 04:47 Last Admin: 04/09/20 04:57 Dose: 400 mls/hr Documented by: Doxycycline Hyclate 100 mg/ (Sodium Chloride) 100 mls @ 100 mls/hr IV Q12H [facility] Last Admin: 04/09/20 11:07 Dose: 100 mls/hr Documented by: Sodium Chloride (Normal Saline) 1,000 mls @ 999 mls/hr IV ASDIRECTED [facility] Stop: 04/09/20 15:31 Ibuprofen (Motrin) 600 mg PO Q8H PRN PRN Reason: fever Last Admin: 04/08/20 16:26 Dose: 600 mg Documented by: Insulin Glargine (Lantus Solostar) 10 units SUBCUT BEDTIME [facility] Last Admin: 04/06/20 21:28 Dose: 10 units Documented by: Insulin Human Lispro (Humalog) 0 unit SUBCUT QIDACANDBED [facility]; Protocol Last Admin: 04/09/20 13:13 Dose: 1 unit Documented by: Ketorolac Tromethamine (Toradol) 15 mg IVPUSH Q8H PRN PRN Reason: Fever Stop: 04/14/20 10:06 Last Admin: 04/09/20 10:51 Dose: 15 mg Documented by: Lidocaine HCl (Xylocaine 2% Jelly) 10 ml MUCMEM ONETIME ONE Stop: 04/08/20 10:25 Last Admin: 04/08/20 10:49 Dose: 10 ml Documented by: Lorazepam (Ativan) 0.5 mg IVPUSH Q1H PRN PRN Reason: Anxiety Lorazepam (Ativan Oral Concentrate 1mg/0.5 Ml U/D) 0.5 mg PO Q1H PRN PRN Reason: Agitation Metformin HCl (Glucophage) 1,000 mg PO BIDMEALS [facility] Last Admin: 04/06/20 08:08 Dose: 1,000 mg Documented by: Morphine Sulfate (Morphine) 2 mg IVPUSH Q2H PRN PRN Reason: Pain Last Admin: 04/09/20 13:11 Dose: 2 mg Documented by: Morphine Sulfate (Morphine) 2 mg IVPUSH Q1H PRN PRN Reason: Pain Last Admin: 04/10/20 11:05 Dose: 2 mg Documented by: Morphine Sulfate (Morphine 10 Mg/0.5 Ml Oral Syringe) 5 mg PO Q1H PRN PRN Reason: pain/air hunger Last Admin: 04/10/20 15:16 Dose: 10 mg Documented by: Ondansetron HCl (Zofran) 4 mg IV Q4H PRN PRN Reason: Nausea/Vomiting Last Admin: 04/06/20 12:42 Dose: 4 mg Documented by: Pantoprazole Sodium (Protonix) 40 mg PO ACBREAKFAST [facility] Last Admin: 04/09/20 08:27 Dose: Not Given Documented by: Pravastatin 40 Mg (TabPom) 0 each PO DAILY [facility] Last Admin: 04/09/20 08:27 Dose: Not Given Documented by: Metformin 1000 Mg (TabPom) 0 each PO BIDMEALS [facility] Last Admin: 04/09/20 08:27 Dose: Not Given Documented by: Glipizide 10 Mg Tab* (*Pom) 0 each PO BIDMEALS [facility] Last Admin: 04/08/20 08:20 Dose: Not Given Documented by: Polyethylene Glycol (Miralax) 17 gm PO DAILY PRN PRN Reason: Constipation Pravastatin Sodium (Pravachol) 40 mg PO DAILY [facility] Last Admin: 04/06/20 08:08 Dose: 40 mg Documented by: Sodium Chloride (Saline Flush) 10 ml FLUSH ASDIRECTED PRN PRN Reason: Keep Vein Open Last Admin: 04/10/20 07:59 Dose: 10 ml Documented by: Vancomycin HCl (Vancomycin) 0 gm IV .PHARMACY TO DOSE [facility] *Q Meaningful Use (DIS) - VTE *Q VTE Pharmacological Contraindications *Q: Patient has Severe Anemia
== END 2020-04-10 23:15 | disposition expired | DRG 97 ==
LOC: JP.ED 08:25 → JP.MS 10:38 → OBSVTOIN 04-08 13:03
PROVIDERS: ADMIT Hospitalist; ATTEND Internal Medicine
PROC: 009U3ZX Drainage of Spinal Canal, Percutaneous Approach, Diagnostic (ICD-10-PCS; principal; 2020-04-09)
DX: A86 Unspecified viral encephalitis (principal); J69.0 Pneumonitis due to inhalation of food and vomit; C91.10 Chronic lymphocytic leukemia of B-cell type not having achieved remission; H53.2 Diplopia; Z51.5 Encounter for palliative care; Z66 Do not resuscitate; Z20.828 Contact with and (suspected) exposure to other viral communicable diseases; E78.00 Pure hypercholesterolemia, unspecified; K21.9 Gastro-esophageal reflux disease without esophagitis; E11.9 Type 2 diabetes mellitus without complications; H54.7 Unspecified visual loss; D51.9 Vitamin B12 deficiency anemia, unspecified; D64.9 Anemia, unspecified; R47.9 Unspecified speech disturbances; R29.810 Facial weakness; Z79.4 Long term (current) use of insulin; Z79.899 Other long term (current) drug therapy; Z91.81 History of falling
CPT/HCPCS: 36415; 36430; 51701; 70450; 70450-26; 70553; 70553-26; 71045; 71045-26; 80048; 80053; 81001; 82607; 82746; 82945; 82962; 83735; 84157; 85018; 85025; 85027; 86788; 86789; 86850; 86900; 86901; 86920; 86922; 87040; 87070; 87205; 89050; 92610-GN; 96360; 97110-GP; 97116-GP; 97162-GP; 97530-GP; 99285; 99285-25; A9270-GY; A9579; J0131; J1100; J1815; J1815-GY; J1885; J2270; J2405; J2543; J3370; J3490; J7030; J7050; P9016; U0002